=== PATIENT | female | born 1975 | race Caucasian/White ===

== ENCOUNTER 2016-07-11 01:58 | Emergency (ER) | payer SELFPAY ==
[~2016-07-11 01:58] MED LIST: HYDR-2768 PO; LISI-363 PO
[2016-07-11 02:01] VITALS: BP 117/65; PULSE 115; RESP 18; TEMP 97.8; O2SAT 98
[2016-07-11 02:32] VITALS: BP 164/107; PULSE 97; RESP 22; TEMP 98; O2SAT 99
[2016-07-11] MEDS ORDERED: HYDR25TA5 PO (02:33)
[2016-07-11] MEDS ORDERED: CIPR-9 PO (02:33)
[2016-07-11] MEDS ORDERED: LISI-515 PO (02:33)
[2016-07-11] MEDS ORDERED: MORPHINE SULFATE 4 MG/ML INJ IM ONE (02:45)
[2016-07-11] MEDS ORDERED: ONDANSETRON HCL 4 MG/2 ML VIAL IM ONE (02:45)
--- NOTE | 2016-07-11 03:19 | RADRPT ---
EXAM DATE/TIME: 07/11/2016 02:42 [facility] COMPARISON: CT ABDOMEN & PELVIS W CONTRAST, December 10, 2015, 22:50. INDICATIONS : Left flank pain. ORAL CONTRAST: No oral contrast ingested. RADIATION DOSE: 12.82 CTDIvol (mGy) MEDICAL HISTORY : Seizures. Hypertension. SURGICAL HISTORY : Hysterectomy. Cholecystectomy.Stimulator for seizures ENCOUNTER: Initial ACUITY: 2 days PAIN SCALE: 8/10 LOCATION: Left flank TECHNIQUE: Volumetric scanning of the abdomen and pelvis was performed. Using automated exposure control and ad justment of the mA and/or kV according to patient size, radiation dose was kept as low as reasonably achievable to obtain optimal diagnostic quality images. FINDINGS: There is respiratory motion artifact. LOWER LUNGS: There is a calcified granuloma in the left lower lobe. LIVER: Homogeneous density without lesion. There is no dilation of the biliary tree. Clips are present in the gallbladder fossa related to prior cholecystectomy. SPLEEN: Normal size without lesion. PANCREAS: Within normal limits. KIDNEYS: Normal in size and shape. There is no mass, stone, or hydronephrosis. ADRENAL GLANDS: Within normal limits. VASCULAR: There is no aortic aneurysm. There is mild atherosclerotic disease. BOWEL/MESENTERY: The stomach, small bowel, and colon demonstrate no acute abnormality. There is no free intraperitone al air or fluid. ABDOMINAL WALL: Within normal limits. RETROPERITONEUM: There is no lymphadenopathy. BLADDER: No wall thickening or mass. REPRODUCTIVE: Within normal limits. INGUINAL: There is no lymphadenopathy or hernia. MUSCULOSKELETAL: No acute osseous abnormality is identified. There is a stable area of sclerosis in the left iliac bon e, likely representing a bone island. CONCLUSION: 1. No acute finding is identified within the abdomen or pelvis to explain left flank pain. There are no renal stones or signs of urinary obstruction. 2. Mild atherosclerotic disease. Rayshawn Rothman MD on July 11, 2016 at 3:15 Board Certified Radiologist. This report was verified electronically.
[2016-07-11 03:51] LABS: BACTERIA, URINE RARE /hpf; BLOOD, URINE SMALL (NEG); COMMENT (UR) CULTURE INDICATED; CULTURE IF INDICATED CULTURE INDICATED; GLUCOSE,URINE NEG (NEG); KETONE, URINE NEG (NEG); MUCUS URINE FEW /lpf (OCC); NITRITE,URINE NEG (NEG); PH, URINE 5.5 (5.0-8.5); SQUAMOUS EPITHELIAL CELL URINE 18 /hpf (0-5); URINE COLOR YELLOW (YELLW/STRAW)
--- NOTE | 2016-07-11 03:51 | PD ---
HPI Chief Complaint: Flank/Kidney Pain Time Seen by Provider: 02:28 Travel History International Travel<30 days: No Contact w/Intl Traveler<30days: No Traveled to known affect area: No History of Present Illness HPI 40-year-old female here with complaint of left-sided flank pain. For the last 2 days patient has had pain in the left flank. This is made worse with movement. She does not have any urinary symptoms and denies any radiation of the pain into the abdomen. No history of ureterolithiasis. No nausea vomiting , fevers or chills. Does not recall any heavy lifting, straining. PFSH Past Medical History Blood Disorders: No Depression: Yes Cancer: No Cardiovascular Problems: Yes (htn) Diminished Hearing: No Endocrine: Yes Gastrointestinal Disorders: Yes Genitourinary: No Headaches: Yes Hypertension: Yes Musculoskeletal: No Neurologic: Yes Psychiatric: Yes Reproductive: No Respiratory: Yes Seizures: Yes Sickle Cell Disease: No Thyroid Disease: Yes (HYPOTHYROIDISM) Influenza Vaccination: Yes ?: Not LMP: 06/07/2016 : 2 Para: 1 Miscarriage: 1 Past Surgical History Body Medical Devices: STIMULATOR YULY NERVE Cholecystectomy: Yes Gynecologic Surgery: Yes (LASER ON CERVIX) Hysterectomy: Yes Neurologic Surgery: Yes (VAGUS NERVE STIMULATOR L SIDE CHEST) Thoracic Surgery: Yes (VAGAL STIMULATER IN CHEST FOR SEIZURES) Other Surgery: Yes (VAGUS STIMULATOR INSTERTED >5YRS) Social History Alcohol Use: Yes (OCCASIONALLY) Tobacco Use: Yes (1 PPD) Substance Use: No Allergies-Medications (Allergen,Severity, Reaction): Coded Allergies: Phenobarbital (Verified Allergy, Severe, "HIVES", 07/11/16) Reported Meds & Prescriptions Reported Meds & Active Scripts Active Reported Lisinopril 20 Mg Tab 20 Mg PO BID Hydrochlorothiazide 25 Mg Tab 25 Mg PO DAILY Cipro (Ciprofloxacin HCl) 500 Mg Tab 500 Mg PO BID Review of Systems Except as stated in HPI: all other systems reviewed are Neg Physical Exam Narrative GENERAL: Obese female in mild distress SKIN: Warm and dry. HEAD: Normocephalic. EYES: No scleral icterus. No injection or drainage. ENT: Mucous membranes pink and moist. NECK: Supple CARDIOVASCULAR: Initially tachycardic with heart rate in the 110s, normalized upon recheck, regular rhythm. No murmur appreciated. RESPIRATORY: No accessory muscle use. Clear to auscultation. Breath sounds equal bilaterally. GASTROINTESTINAL: Abdomen soft, non-tender, nondistended. MUSCULOSKELETAL: Left-sided CVA tenderness reproducible. Reproducible paraspinous muscle tenderness without palpable spasm NEUROLOGICAL: Awake and alert. Normal speech. PSYCHIATRIC: Appropriate mood and affect; insight and judgment normal. Data Data Last Documented VS Vital Signs Date Time Temp Pulse Resp B/P Pulse Ox O2 Delivery O2 Flow Rate FiO2 07/11/16 02:32 98.0 97 22 164/107 99 Room Air Orders Urinalysis - C+S If Indicated (07/11/16 02:28) Ct Abd/Pel W/O Iv Contrast (07/11/16 02:33) Morphine Inj (Morphine Inj) (07/11/16 02:45) Ondansetron Inj (Zofran Inj) (07/11/16 02:45) Urine Culture (07/11/16 02:50) Labs Laboratory Tests Test 07/11/16 02:50 Urine Color YELLOW Urine Turbidity HAZY Urine pH 5.5 Urine Specific [place] 1.026 Urine Protein TRACE mg/dL Urine Glucose (UA) NEG mg/dL Urine Ketones NEG mg/dL Urine Occult Blood SMALL Urine Nitrite NEG Urine Bilirubin NEG Urine Urobilinogen 2.0 MG/DL Urine Leukocyte Esterase LARGE Urine RBC 14 /hpf Urine WBC 84 /hpf Urine Squamous Epithelial 18 /hpf Cells Urine Bacteria RARE /hpf Urine Mucus FEW /lpf Microscopic Urinalysis Comment CULTURE INDICATED MDM Medical Decision Making Medical Screen Exam Complete: Yes Emergency Medical Condition: Yes Medical Record Reviewed: Yes Differential Diagnosis 40-year-old female with 2 days of left-sided flank pain. Differential includes musculoskeletal, UTI/pyelonephritis, ureterolithiasis and less likely basilar pneumonia given lack of respiratory symptoms. Narrative Course Patient placed on monitor. Given 4 mg morphine, [address] of the abdomen and pelvis was unremarkable. Urinalysis showed large leukocyte esterase with white cells, red cells and bacteria. Based on her symptomatology she was given IM Rocephin for pyelonephritis and will be discharged home with Keflex. Diagnosis Primary Impression: Pyelonephritis Referrals: Primary Care Physician as needed Additional Instructions: Finish the antibiotics as prescribed. Tylenol, ibuprofen as needed for pain. Med/Other Pt SpecificInfo: Prescription(s) given Scripts Cephalexin (Keflex)500 Mg [id number] Mg PO Q6H 7 Days Ref 0 Prov:Germaine Read MD 07/11/16 Disposition: 01 DISCHARGE HOME Condition: Stable Germaine Read MD Jul 11, 2016 03:51
[2016-07-11] MEDS ORDERED: CEPH-460 PO (04:05)
[2016-07-11] MEDS ORDERED: LIDOCAINE HCL 1% 50 ML VIAL IM ONE (04:15)
== END 2016-07-11 04:24 | disposition home or self-care (01) ==
LOC: NEPE 01:58
DX: N12 Tubulo-interstitial nephritis, not specified as acute or chronic (principal); B96.89 Other specified bacterial agents as the cause of diseases classified elsewhere
CPT/HCPCS: 74176; 81001; 87086; 96372; 99284; J0696; J2270; J2405

== ENCOUNTER 2016-10-23 23:16 | Emergency (ER) | payer SELFPAY ==
[~2016-10-23] VITALS: Ht 167.6 cm; Wt 100.0 kg
[~2016-10-23 23:16] MED LIST changes: +CEPH-460 PO; +CIPR-9 PO; -HYDR-2768 PO; +HYDR25TA5 PO; -LISI-363 PO; +LISI-515 PO
[2016-10-23 23:27] VITALS: BP 205/126; PULSE 91; RESP 18; TEMP 98.2; O2SAT 98
--- NOTE | 2016-10-24 00:14 | PD ---
HPI Chief Complaint: Skin Problem Time Seen by Provider: 00:13 Travel History International Travel<30 days: No Contact w/Intl Traveler<30days: No Traveled to known affect area: No History of Present Illness HPI 41-year-old female presents to emergency department for evaluation. Patient states 4 days ago she had a tattoo on the distal right lateral lower extremity. Patient states that it burned immediately and the artist changed ankle which helped. She states this was done in a professional place. She states shortly after the tattoo she developed some redness surrounding it. She states this has worsened and now she has swelling extending to her right ankle. She denies fever or chills. States that it is painful and burning, rates it an 8 out of 10. Patient has no other symptoms to report this time. PFSH Past Medical History Blood Disorders: No Depression: Yes Cancer: No Cardiovascular Problems: Yes (htn) Diminished Hearing: No Endocrine: Yes Gastrointestinal Disorders: Yes Genitourinary: No Headaches: Yes Hypertension: Yes Musculoskeletal: No Neurologic: Yes Psychiatric: Yes Reproductive: No Respiratory: Yes Seizures: Yes Sickle Cell Disease: No Thyroid Disease: Yes (HYPOTHYROIDISM) ?: Unknown : 2 Para: 1 Miscarriage: 1 Past Surgical History Body Medical Devices: STIMULATOR YULY NERVE Cholecystectomy: Yes Gynecologic Surgery: Yes (LASER ON CERVIX) Hysterectomy: Yes Neurologic Surgery: Yes (VAGUS NERVE STIMULATOR L SIDE CHEST) Thoracic Surgery: Yes (VAGAL STIMULATER IN CHEST FOR SEIZURES) Other Surgery: Yes (VAGUS STIMULATOR INSTERTED >5YRS) Social History Alcohol Use: Yes (OCCASIONALLY) Tobacco Use: Yes (1 PPD) Substance Use: No Allergies-Medications (Allergen,Severity, Reaction): Coded Allergies: Phenobarbital (Verified Allergy, Severe, "HIVES", 07/11/16) Reported Meds & Prescriptions Reported Meds & Active Scripts Active Mupirocin Topical (Mupirocin) 2 % Oint 1 Applic TOPICAL BID Keflex (Cephalexin) 500 Mg Cap 500 Mg PO Q6H 5 Days Bactrim DS (Sulfamethoxazole-Trimethoprim) 800-160 Mg Tab 1 Tab PO BID Keflex (Cephalexin) 500 Mg Cap 500 Mg PO Q6H 7 Days Reported Lisinopril 20 Mg Tab 20 Mg PO BID Hydrochlorothiazide 25 Mg Tab 25 Mg PO DAILY Cipro (Ciprofloxacin HCl) 500 Mg Tab 500 Mg PO BID Review of Systems Except as stated in HPI: all other systems reviewed are Neg Physical Exam Narrative GENERAL: Well-nourished, well-developed female patient no acute distress SKIN: Focused skin assessment warm/dry. There is a tattoo "sisters" on the lateral aspect of the right distal lower extremity. This has an area of erythema surrounding it extending about 3 cm. There is mild edema that is nonpitting extending to the right ankle. The area is warm to touch and tender. There is no fluctuation. HEAD: Normocephalic. EYES: No scleral icterus. No injection or drainage. NECK: Supple, trachea midline. No JVD or lymphadenopathy. CARDIOVASCULAR: Regular rate and rhythm without murmurs, gallops, or rubs. RESPIRATORY: Breath sounds equal bilaterally. No accessory muscle use. MUSCULOSKELETAL: No cyanosis. BACK: Nontender without obvious deformity. No CVA tenderness. Data Data Last Documented VS Vital Signs Date Time Temp Pulse Resp B/P Pulse Ox O2 Delivery O2 Flow Rate FiO2 10/24/16 01:13 89 12 188/81 98 Room Air 10/23/16 23:27 98.2 Orders Sulfamet-Trimeth Ds 800-160 Mg (Bactrim (10/24/16 00:15) Cephalexin (Keflex) (10/24/16 00:15) Clonidine (Catapres) (10/24/16 00:30) MDM Medical Decision Making Medical Screen Exam Complete: Yes Emergency Medical Condition: Yes Medical Record Reviewed: Yes Differential Diagnosis Cellulitis versus abscess versus contact dermatitis versus ink reaction Narrative Course 41-year-old female presents to the emergency department for evaluation of erythema and edema surrounding a tattoo she received 4 days ago. Patient appears without distress. Her vital signs are stable except she is quite hypertensive. Patient does have a history of this. She has no symptoms associated with this. She is given clonidine and monitored. Patient be treated for cellulitis of the right distal lower extremity. Following reassessment, patient's blood pressure has decreased. She'll be discharged home. I encouraged follow-up with a primary care provider. She agrees to return immediately with any acute worsening symptoms. Diagnosis Primary Impression: Cellulitis of right lower extremity without foot Additional Impressions: Hypertension Qualified Code: I10 - Essential hypertension Tattoo reaction Referrals: Primary Care Physician Patient Instructions: Cellulitis (DC), General Instructions Additional Instructions: Keep the area clean and dry You may shower Elevate the lower extremity to reduce swelling Follow-up with your primary care provider Return immediately with any acute worsening of symptoms Med/Other Pt SpecificInfo: Prescription(s) given Scripts Mupirocin Topical 2 % Oint1 Applic TOPICAL BID #1 TUBE Ref 0 Prov:Yolanda Braun 10/24/16 Cephalexin (Keflex)500 Mg [id number] Mg PO Q6H 5 Days Ref 0 Prov:Yolanda Braun 10/24/16 Sulfamethoxazole-Trimethoprim (Bactrim DS)800-160 Mg Tab1 Tab PO BID #20 TAB Ref 0 Prov:Yolanda Braun 10/24/16 Disposition: 01 DISCHARGE HOME Condition: Stable Yolanda Braun October 24, 2016 00:13
[2016-10-24] MEDS ORDERED: CEPHALEXIN MONOHYDRATE 500 MG CAP PO ONE (00:15)
[2016-10-24] MEDS ORDERED: SULFAMETHOXAZOLE-TRIMETHOPRIM DS 800-160 MG TAB PO ONE (00:15)
[2016-10-24 00:17] VITALS: BP 213/110; PULSE 88; RESP 14; O2SAT 99
[2016-10-24] MEDS ORDERED: cloNIDine HCL 0.2 MG TAB PO ONE (00:30)
[2016-10-24] MEDS ORDERED: CEPH-460 PO (00:37)
[2016-10-24] MEDS ORDERED: BACT800T5 PO (00:37)
[2016-10-24] MEDS ORDERED: MUPI2OIN TOPICAL (00:37)
[2016-10-24 01:04] VITALS: BP 197/75; PULSE 84; RESP 12; O2SAT 97
[2016-10-24 01:13] VITALS: BP 188/81; PULSE 89; RESP 12; O2SAT 98
== END 2016-10-24 01:18 | disposition home or self-care (01) ==
LOC: NEPD 23:16
DX: L03.115 Cellulitis of right lower limb (principal); I10 Essential (primary) hypertension; E03.9 Hypothyroidism, unspecified; F17.200 Nicotine dependence, unspecified, uncomplicated
CPT/HCPCS: 99282

== ENCOUNTER 2016-12-14 15:30 | Emergency (ER) | payer SELFPAY ==
[~2016-12-14] VITALS: Ht 167.6 cm; Wt 90.5 kg
[~2016-12-14 15:30] MED LIST changes: +BACT800T5 PO; +MUPI2OIN TOPICAL
[2016-12-14 15:32] VITALS: BP 209/140; PULSE 102; RESP 24; TEMP 97.9; O2SAT 94
--- NOTE | 2016-12-14 15:36 | PD ---
Physical Exam Time Seen by Provider: 15:34 Narrative 41 y/o female here for evaluation of cough, congestion, pain with cough. Cough is nonproductive. Vital signs reviewed. Seen at triage desk. Awaiting bed placement. Data Data Last Documented VS Vital Signs Date Time Temp Pulse Resp B/P Pulse Ox O2 Delivery O2 Flow Rate FiO2 12/14/16 15:32 97.9 102 24 209/140 94 Room Air [facility] Medical Record Reviewed: Yes Supervised Visit with SHYLA: Jose Martin Quiñones Dec 14, 2016 15:35
[2016-12-14] MEDS ORDERED: hydrALAZINE HCL 20 MG/ML VIAL IV PUSH ONE ×2 (19:00→22:00)
--- NOTE | 2016-12-14 19:25 | RADRPT ---
EXAM DATE/TIME: 12/14/2016 19:15 [facility] COMPARISON: CHEST SINGLE AP, March 10, 2016, 13:13. INDICATIONS : Cough. MEDICAL HISTORY : Hypertension. Seizures. SURGICAL HISTORY : Hysterectomy. Cholecystectomy.Stimulator for seizures ENCOUNTER: Initial ACUITY: 1 day PAIN SCORE: 6/10 LOCATION: Bilateral chest FINDINGS: A single view of the chest demonstrates the lungs to be symmetrically aerated without evidence of mas s, infiltrate or effusion. Stimulator for seizure is noted without leads. The cardiomediastinal con tours are unremarkable. Osseous structures are intact. CONCLUSION: No acute disease. [place] MD FACR on December 14, 2016 at 19:23 Board Certified Radiologist. This report was verified electronically.
[2016-12-14 19:26] VITALS: BP 206/116; PULSE 78; RESP 18; O2SAT 96
--- NOTE | 2016-12-14 19:28 | PD ---
HPI Chief Complaint: GI Complaint Time Seen by Provider: 18:34 Travel History International Travel<30 days: No Contact w/Intl Traveler<30days: No Traveled to known affect area: No History of Present Illness HPI 41yo F with PMH of HTN presents to the ED with c/o dry cough, throat pain since yesterday. Pt states she also had an episode of NBNB vomiting yesterday. Pt denies any fever, headache, visual changes, chest pain, sob, nausea, abdominal pain, focal weakness or numbness. States she is compliant with her blood pressure medications. PFSH Past Medical History Blood Disorders: No Depression: Yes Cancer: No Cardiovascular Problems: Yes (htn) Diminished Hearing: No Endocrine: Yes Gastrointestinal Disorders: Yes Genitourinary: No Headaches: Yes Hypertension: Yes Musculoskeletal: No Neurologic: Yes Psychiatric: Yes Reproductive: No Respiratory: Yes Seizures: Yes Sickle Cell Disease: No Thyroid Disease: Yes (HYPOTHYROIDISM) ?: Unknown LMP: 10/10/16 : 2 Para: 1 Miscarriage: 1 Past Surgical History Body Medical Devices: STIMULATOR YULY NERVE Cholecystectomy: Yes Gynecologic Surgery: Yes (LASER ON CERVIX) Hysterectomy: Yes Neurologic Surgery: Yes (VAGUS NERVE STIMULATOR L SIDE CHEST) Thoracic Surgery: Yes (VAGAL STIMULATER IN CHEST FOR SEIZURES) Other Surgery: Yes (VAGUS STIMULATOR INSTERTED >5YRS) Social History Alcohol Use: Yes (OCCASIONALLY) Tobacco Use: Yes (1/2 ppd) Substance Use: No Allergies-Medications (Allergen,Severity, Reaction): Coded Allergies: Phenobarbital (Verified Allergy, Severe, "HIVES", 12/14/16) Reported Meds & Prescriptions Reported Meds & Active Scripts Active Reported Lisinopril 20 Mg Tab 20 Mg PO BID Hydrochlorothiazide 25 Mg Tab 25 Mg PO DAILY Review of Systems Except as stated in HPI: all other systems reviewed are Neg Physical Exam Narrative GENERAL: 41yo F not in distress. SKIN: Focused skin assessment warm/dry. HEAD: Atraumatic. Normocephalic. EYES: Pupils equal and round. No scleral icterus. No injection or drainage. ENT: No nasal bleeding or discharge. Mucous membranes pink and moist. Throat: Mildly erythematous throat. Uvula midline. No exudate. NECK: Trachea midline. No JVD. CARDIOVASCULAR: Regular rate and rhythm. No murmur appreciated. RESPIRATORY: No accessory muscle use. Clear to auscultation. Breath sounds equal bilaterally. GASTROINTESTINAL: Abdomen soft, non-tender, nondistended. No rebound tenderness or guarding. MUSCULOSKELETAL: No obvious deformities. No clubbing. No cyanosis. No edema. NEUROLOGICAL: Awake and alert. No obvious cranial nerve deficits. Motor grossly within normal limits. Normal speech. PSYCHIATRIC: Appropriate mood and affect; insight and judgment normal. Data Data Last Documented VS Vital Signs Date Time Temp Pulse Resp B/P Pulse Ox O2 Delivery O2 Flow Rate FiO2 12/14/16 22:25 176/91 12/14/16 21:55 80 99 Room Air 12/14/16 21:44 18 12/14/16 15:32 97.9 Orders Chest, Single Ap (12/14/16 ) Complete Blood Count With Diff (12/14/16 18:47) Basic Metabolic Panel (Bmp) (12/14/16 18:47) Magnesium (Mg) (12/14/16 18:47) Urinalysis - C+S If Indicated (12/14/16 18:47) Ed Urine Pregnancytest Poc (12/14/16 18:47) Hydralazine Inj (Apresoline Inj) (12/14/16 19:00) Group A Rapid Strep Screen (12/14/16 18:57) Strep Culture (Group A) (12/14/16 19:30) Clonidine (Catapres) (12/14/16 21:15) Clonidine (Catapres) (12/14/16 22:00) Hydralazine Inj (Apresoline Inj) (12/14/16 22:00) Labs Laboratory Tests Test 12/14/16 12/14/16 19:20 19:35 Urine Color YELLOW Urine Turbidity CLEAR Urine pH 5.5 Urine Specific [place] 1.028 Urine Protein TRACE mg/dL Urine Glucose (UA) NEG mg/dL Urine Ketones NEG mg/dL Urine Occult Blood TRACE Urine Nitrite NEG Urine Bilirubin NEG Urine Urobilinogen LESS THAN 2.0 MG/DL Urine Leukocyte Esterase TRACE Urine RBC 2 /hpf Urine WBC 1 /hpf Urine Squamous Epithelial 3 /hpf Cells Urine Bacteria RARE /hpf Urine Mucus FEW /lpf Microscopic Urinalysis Comment CULT NOT INDICATED White Blood Count 7.9 TH/MM3 Red Blood Count 4.41 MIL/MM3 Hemoglobin 13.0 GM/DL Hematocrit 39.5 % Mean Corpuscular Volume 89.6 FL Mean Corpuscular Hemoglobin 29.5 PG Mean Corpuscular Hemoglobin 33.0 % Concent Red Cell Distribution Width 15.1 % Platelet Count 187 TH/MM3 Mean Platelet Volume 10.3 FL Neutrophils (%) (Auto) 66.9 % Lymphocytes (%) (Auto) 20.3 % Monocytes (%) (Auto) 10.7 % Eosinophils (%) (Auto) 1.5 % Basophils (%) (Auto) 0.6 % Neutrophils # (Auto) 5.3 TH/MM3 Lymphocytes # (Auto) 1.6 TH/MM3 Monocytes # (Auto) 0.8 TH/MM3 Eosinophils # (Auto) 0.1 TH/MM3 Basophils # (Auto) 0.0 TH/MM3 CBC Comment DIFF FINAL Differential Comment Sodium Level 140 MEQ/L Potassium Level 4.0 MEQ/L Chloride Level 107 MEQ/L Carbon Dioxide Level 26.4 MEQ/L Anion Gap 7 MEQ/L Blood Urea Nitrogen 17 MG/DL Creatinine 0.95 MG/DL Estimat Glomerular Filtration 65 ML/MIN Rate Random Glucose 86 MG/DL Calcium Level 8.5 MG/DL Magnesium Level 2.1 MG/DL [facility] Medical Decision Making Medical Screen Exam Complete: Yes Emergency Medical Condition: Yes Differential Diagnosis URI vs. pneumonia vs. pharyngitis Narrative Course 41yo F with c/o dry cough, throat pain, and generalized weakness. Labs reviewed , no leukocytosis. BMP unremarkable. Magnesium normal. UA showed trace leukocyte. WBC 1. Culture not indicated. CXR negative. Group A strep negative. Pt's blood pressure was elevated at 206/116. Pt was given a total of hydralazine 20mg IV and clonidine 0.2mg PO. BP improved to 176/91. Pt reevaluated at bedside and she states she feels better and wants to go home. Return precautions given. Diagnosis Primary Impression: URI (upper respiratory infection) Qualified Code: J06.9 - Upper respiratory tract infection, unspecified type Additional Impression: Uncontrolled hypertension Patient Instructions: General Instructions Departure Forms: Tests/Procedures Additional Instructions: Please follow up with your PMD in 3-7 days. Return to the ED if symptoms worsen. Med/Other Pt SpecificInfo: Prescription(s) given Scripts Acetaminophen (Tylenol)325 Mg [id number] Mg PO Q6H PRN (PAIN SCALE 1 TO 4) #20 TAB Ref 0 Prov:Dolores Alvarez DO 12/14/16 Dextromethorphan (Robitussin Lingering Cold)15 Mg Cap30 Mg PO Q8H PRN (COUGH) 5 Days Ref 0 Prov:Dolores Alvarez DO 12/14/16 Disposition: 01 DISCHARGE HOME Condition: Stable Dolores Alvarez DO Dec 14, 2016 19:28
[2016-12-14 20:13] LABS: BACTERIA, URINE RARE /hpf; BLOOD, URINE TRACE (NEG); COMMENT (UR) CULT NOT INDICATED; CULTURE IF INDICATED CULT NOT INDICATED; GLUCOSE,URINE NEG (NEG); KETONE, URINE NEG (NEG); MUCUS URINE FEW /lpf (OCC); NITRITE,URINE NEG (NEG); PH, URINE 5.5 (5.0-8.5); SQUAMOUS EPITHELIAL CELL URINE 3 /hpf (0-5); URINE COLOR YELLOW (YELLW/STRAW)
[2016-12-14 20:16] LABS: AUTOMATED NEUTROPHIL # 5.3 TH/MM3 (1.8-7.7); BASOPHIL % 0.6 % (0.0-2.0); EOSINOPHIL # 0.1 TH/MM3 (0-0.4); EOSINOPHIL % 1.5 % (0.0-4.0); HEMATOCRIT 39.5 % (35.0-46.0); HEMO FLAGS DIFF FINAL; LYMPH % 20.3 % (9.0-44.0); LYMPHOCYTE # 1.6 TH/MM3 (1.0-4.8); MEAN CELL VOLUME 89.6 FL (80.0-100.0); MEAN CORPUSCULAR HEMOGLOBIN 29.5 PG (27.0-34.0); MONO % 10.7 % (0.0-8.0); NEUT % 66.9 % (16.0-70.0); PLATELET COUNT 187 TH/MM3 (150-450); RED BLOOD COUNT 4.41 MIL/MM3 (4.00-5.30); RED CELL DISTRIBUTION WIDTH 15.1 % (11.6-17.2); WHITE BLOOD COUNT 7.9 TH/MM3 (4.0-11.0)
[2016-12-14 20:33] LABS: BICARBONATE 26.4 MEQ/L (21.0-32.0); MAGNESIUM 2.1 MG/DL (1.5-2.5)
[2016-12-14 21:02] VITALS: BP 213/115; PULSE 78; RESP 18; O2SAT 98
[2016-12-14] MEDS ORDERED: cloNIDine HCL 0.1 MG TAB PO ONE ×2 (21:15→22:00)
[2016-12-14 21:44] VITALS: BP 194/138; PULSE 82; RESP 18; O2SAT 98
[2016-12-14 21:55] VITALS: BP 190/112; PULSE 80; O2SAT 99
[2016-12-14 22:25] VITALS: BP 176/91
[2016-12-14] MEDS ORDERED: TYLE325T PO (23:05)
[2016-12-14] MEDS ORDERED: ROBICAP2 PO (23:05)
== END 2016-12-14 23:13 | disposition home or self-care (01) ==
LOC: NEPD 15:30
DX: J06.9 Acute upper respiratory infection, unspecified (principal); I10 Essential (primary) hypertension; R53.1 Weakness; F32.9 Major depressive disorder, single episode, unspecified; R56.9 Unspecified convulsions; E03.9 Hypothyroidism, unspecified; F17.200 Nicotine dependence, unspecified, uncomplicated; Z79.899 Other long term (current) drug therapy
CPT/HCPCS: 71010; 80048; 81001; 83735; 84703; 85025; 87081; 87880; 96374; 96376; 99284; J0360

== ENCOUNTER 2017-01-11 17:47 | Emergency (ER) | payer SELFPAY ==
[~2017-01-11] VITALS: Ht 167.6 cm; Wt 100.0 kg
[~2017-01-11 17:47] MED LIST changes: -BACT800T5 PO; -CEPH-460 PO; -CIPR-9 PO; -MUPI2OIN TOPICAL; +ROBICAP2 PO; +TYLE325T PO
[2017-01-11 17:50] VITALS: BP 209/129; PULSE 98; RESP 22; TEMP 97.8; O2SAT 95
--- NOTE | 2017-01-11 18:02 | PD ---
Physical Exam Date Seen by Provider: Jan 11, 2017 Time Seen by Provider: 17:56 Narrative 41 y/o female with RLQ pain for the past several days. No Nausea or vomiting or Diarrhea. Patient denies Urinary symptoms. Denies . Pain is worsening and worse with Movement. Patient had 2 BM's today which made pain worse. Protocols ordered. Vital signs reviewed. Patient stable. Awaiting Bed placement. Data Data Last Documented VS Vital Signs Date Time Temp Pulse Resp B/P Pulse Ox O2 Delivery O2 Flow Rate FiO2 01/11/17 17:50 97.8 98 22 209/129 95 MDM Medical Record Reviewed: Yes Supervised Visit with SHYLA: Yes Condition: Stable Kevin Ramírez Jan 11, 2017 18:02
[2017-01-11 18:25] LABS: BACTERIA, URINE RARE /hpf; BLOOD, URINE SMALL (NEG); COMMENT (UR) CULT NOT INDICATED; CULTURE IF INDICATED CULT NOT INDICATED; GLUCOSE,URINE NEG (NEG); KETONE, URINE NEG (NEG); MUCUS URINE FEW /lpf (OCC); NITRITE,URINE NEG (NEG); SQUAMOUS EPITHELIAL CELL URINE 2 /hpf (0-5); URINE COLOR YELLOW (YELLW/STRAW)
[2017-01-11 21:02] VITALS: BP 194/123; PULSE 81; RESP 16; TEMP 97.7; O2SAT 100
[2017-01-11] MEDS ORDERED: SODIUM CHLOR 0.9% 1000 ML INJ 1,000 ML IV ONE (22:00)
[2017-01-11] MEDS ORDERED: ONDANSETRON HCL 4 MG/2 ML VIAL IV PUSH ONE (22:00)
[2017-01-11] MEDS ORDERED: MORPHINE SULFATE 4 MG/ML INJ IV PUSH ONE (22:00)
[2017-01-11 22:03] LABS: AUTOMATED NEUTROPHIL # 6.8 TH/MM3 (1.8-7.7); BASOPHIL % 0.4 % (0.0-2.0); EOSINOPHIL # 0.1 TH/MM3 (0-0.4); EOSINOPHIL % 1.1 % (0.0-4.0); HEMATOCRIT 43.5 % (35.0-46.0); HEMO FLAGS DIFF FINAL; LYMPH % 18.6 % (9.0-44.0); LYMPHOCYTE # 1.8 TH/MM3 (1.0-4.8); MEAN CELL VOLUME 90.9 FL (80.0-100.0); MEAN CORPUSCULAR HEMOGLOBIN 29.9 PG (27.0-34.0); MEAN CORPUSCULAR HGB CONC 32.9 % (32.0-36.0); MONO % 8.2 % (0.0-8.0); NEUT % 71.7 % (16.0-70.0); PLATELET COUNT 220 TH/MM3 (150-450); RED BLOOD COUNT 4.79 MIL/MM3 (4.00-5.30); RED CELL DISTRIBUTION WIDTH 16.1 % (11.6-17.2); WHITE BLOOD COUNT 9.4 TH/MM3 (4.0-11.0)
[2017-01-11 22:23] LABS: ANION GAP 7 MEQ/L (5-15); AST (GOT) 15 U/L (15-37); BICARBONATE 26.1 MEQ/L (21.0-32.0); BLOOD UREA NITROGEN 18 MG/DL (7-18); CHLORIDE 103 MEQ/L (98-107); GLOMERULAR FILTRATION RATE 54 ML/MIN (>89); POTASSIUM 3.8 MEQ/L (3.5-5.1); SODIUM (NA) 136 MEQ/L (136-145)
[2017-01-11 22:24] LABS: ALT (GPT) 21 U/L (10-53)
[2017-01-11 22:27] LABS: ALKALINE PHOSPHATASE 105 U/L (45-117); TOTAL BILIRUBIN ADULT 0.8 MG/DL (0.2-1.0)
[2017-01-11] MEDS ORDERED: IOHEXOL 350 MG/ML 10 ML VIAL (for RAD DIAG) IV ONE (23:16)
--- NOTE | 2017-01-11 23:24 | RADRPT ---
EXAM DATE/TIME: 01/11/2017 23:09 [facility] COMPARISON: CT ABDOMEN & PELVIS W/O CONTRAST, July 11, 2016, 2:42. CT ABDOMEN & PELVIS W CONTRAST, December 10, 2015, 22:50. INDICATIONS : Lower right quadrant pain. IV CONTRAST: 97 cc Omnipaque 350 (iohexol) IV ORAL CONTRAST: No oral contrast ingested. RADIATION DOSE: 23.23 CTDIvol (mGy) MEDICAL HISTORY : Seizures. Hypertension. SURGICAL HISTORY : Cholecystectomy. Hysterectomy. ENCOUNTER: Initial ACUITY: 2 days PAIN SCALE: 9/10 LOCATION: Right lower quadrant TECHNIQUE: Volumetric scanning of the abdomen and pelvis was performed. Using automated exposure control and ad justment of the mA and/or kV according to patient size, radiation dose was kept as low as reasonably achievable to obtain optimal diagnostic quality images. DICOM format image data is available electro nically for review and comparison. FINDINGS: The patient is status post cholecystectomy and hysterectomy. There is a small pericardial effusion. L iver, spleen, pancreas, adrenal glands, kidneys are unremarkable. Mild atherosclerotic calcifications of the aorta and iliac vessels. Urinary bladder, uterus and ovaries are unremarkable. No evidence of bowel obstruction. Stomach unremarkable. No adenopathy or aneurysm. Calcified granuloma in the left lower lobe, calcified splenic granuloma and calcified left paraesophageal lymph node identified. The osseous structures are intact. There is a bone island of the left iliac bone posteriorly. CONCLUSION: No acute disease. Pawel Contreras MD on January 11, 2017 at 23:21 Board Certified Radiologist. This report was verified electronically.
[2017-01-11] MEDS ORDERED: NAPR500 PO (23:46)
--- NOTE | 2017-01-11 23:46 | PD ---
HPI Chief Complaint: Abdominal Pain Time Seen by Provider: 21:24 Travel History International Travel<30 days: No Contact w/Intl Traveler<30days: No Traveled to known affect area: No History of Present Illness HPI 39s year-old woman presents emergent arm for right lower abdominal pain is been ongoing for the past 2 days or so. Initially was intermittent is been constant and severe since onset. Otherwise has felt well. Normal bowel movements. No urinary symptoms. No vaginal discharge. She's not had her menstrual cycle for the past couple months. She has a history of a cholecystectomy but no other abdominal surgeries. No other complaints. History Past Medical History Narrative Medical Seizures Tetanus Vaccination: > 5 Years Influenza Vaccination: Yes : 2 Para: 1 Social History Alcohol Use: Yes (OCCASIONALLY) Tobacco Use: Yes (1/2 ppd) Allergies-Medications (Allergen,Severity, Reaction): Coded Allergies: Phenobarbital (Verified Allergy, Severe, "HIVES", 01/11/17) Reported Meds & Prescriptions Reported Meds & Active Scripts Active Tylenol (Acetaminophen) 325 Mg Tab 650 Mg PO Q6H PRN Robitussin Lingering Cold (Dextromethorphan HBr) 15 Mg Cap 30 Mg PO Q8H PRN 5 Days Reported Lisinopril 20 Mg Tab 20 Mg PO BID Hydrochlorothiazide 25 Mg Tab 25 Mg PO DAILY Review of Systems Except as stated in HPI: all other systems reviewed are Neg Physical Exam Narrative GENERAL: Well-appearing 41 year-old woman, no acute distress. SKIN: Focused skin assessment warm/dry. HEAD: Atraumatic. Normocephalic. CARDIOVASCULAR: Regular rate and rhythm. No murmur appreciated. RESPIRATORY: No accessory muscle use. Clear to auscultation. Breath sounds equal bilaterally. GASTROINTESTINAL: Abdomen is obese, soft, with right lower quadrant tenderness to palpation and some mild guarding. MUSCULOSKELETAL: No obvious deformities. No clubbing. No cyanosis. No edema. NEUROLOGICAL: Awake and alert. No obvious cranial nerve deficits. Motor grossly within normal limits. Normal speech. PSYCHIATRIC: Appropriate mood and affect; insight and judgment normal. Data Data Last Documented VS Vital Signs Date Time Temp Pulse Resp B/P Pulse Ox O2 Delivery O2 Flow Rate FiO2 01/11/17 21:02 97.7 81 16 194/123 100 Room Air Orders Complete Blood Count With Diff (01/11/17 18:00) Comprehensive Metabolic Panel (01/11/17 18:00) Urinalysis - C+S If Indicated (01/11/17 18:00) Ed Urine Pregnancytest Poc (01/11/17 18:00) Lipase (01/11/17 18:00) Thyroid Stimulating Hormone (01/11/17 21:59) Ct Abd/Pel W Iv Contrast(Rout) (01/11/17 ) Morphine Inj (Morphine Inj) (01/11/17 22:00) Ondansetron Inj (Zofran Inj) (01/11/17 22:00) Sodium Chlor 0.9% 1000 Ml Inj (Ns 1000 M (01/11/17 22:00) Iohexol 350 Inj (Omnipaque 350 Inj) (01/11/17 23:16) Labs Laboratory Tests Test 01/11/17 01/11/17 18:10 21:40 Urine Color YELLOW Urine Turbidity HAZY Urine pH 5.0 Urine Specific [place] 1.025 Urine Protein TRACE mg/dL Urine Glucose (UA) NEG mg/dL Urine Ketones NEG mg/dL Urine Occult Blood SMALL Urine Nitrite NEG Urine Bilirubin NEG Urine Urobilinogen LESS THAN 2.0 MG/DL Urine Leukocyte Esterase SMALL Urine RBC 1 /hpf Urine WBC 3 /hpf Urine Squamous Epithelial 2 /hpf Cells Urine Bacteria RARE /hpf Urine Mucus FEW /lpf Microscopic Urinalysis Comment CULT NOT INDICATED White Blood Count 9.4 TH/MM3 Red Blood Count 4.79 MIL/MM3 Hemoglobin 14.3 GM/DL Hematocrit 43.5 % Mean Corpuscular Volume 90.9 FL Mean Corpuscular Hemoglobin 29.9 PG Mean Corpuscular Hemoglobin 32.9 % Concent Red Cell Distribution Width 16.1 % Platelet Count 220 TH/MM3 Mean Platelet Volume 9.0 FL Neutrophils (%) (Auto) 71.7 % Lymphocytes (%) (Auto) 18.6 % Monocytes (%) (Auto) 8.2 % Eosinophils (%) (Auto) 1.1 % Basophils (%) (Auto) 0.4 % Neutrophils # (Auto) 6.8 TH/MM3 Lymphocytes # (Auto) 1.8 TH/MM3 Monocytes # (Auto) 0.8 TH/MM3 Eosinophils # (Auto) 0.1 TH/MM3 Basophils # (Auto) 0.0 TH/MM3 CBC Comment DIFF FINAL Differential Comment Sodium Level 136 MEQ/L Potassium Level 3.8 MEQ/L Chloride Level 103 MEQ/L Carbon Dioxide Level 26.1 MEQ/L Anion Gap 7 MEQ/L Blood Urea Nitrogen 18 MG/DL Creatinine 1.10 MG/DL Estimat Glomerular Filtration 54 ML/MIN Rate Random Glucose 74 MG/DL Calcium Level 9.1 MG/DL Total Bilirubin 0.8 MG/DL Aspartate Amino Transf 15 U/L (AST/SGOT) Alanine Aminotransferase 21 U/L (ALT/SGPT) Alkaline Phosphatase 105 U/L Total Protein 8.5 GM/DL Albumin 4.1 GM/DL Lipase 108 U/L [facility] Medical Decision Making Medical Screen Exam Complete: Yes Emergency Medical Condition: Yes Interpretation(s) LABS: CBC is unremarkable. CMP is unremarkable. Lipase is normal. UA is unremarkable. CT abdomen and pelvis negative Differential Diagnosis Appendicitis, ovarian cyst, reflux, infection, other Narrative Course Medical decision-making new para 41-year-old with intermittent right lower quadrant abdominal pain. She appears several months. Suspect endometriosis or ovarian cyst. She has right lower quadrant tenderness and appendicitis difficult to completely exclude. CT was negative. Urine is negative. Recommend supportive treatment and outpatient follow-up. Diagnosis Primary Impression: Right lower quadrant abdominal pain Additional Instructions: Take Naprosyn as prescribed. Follow-up with your locate technician for further evaluation. Return to the emergency department for any worsening abdominal pain, fevers or chills, or any other new or worsening symptoms. Med/Other Pt SpecificInfo: Prescription(s) given Scripts Naproxen (Naprosyn)500 Mg Iet352 Mg PO BID PRN (PAIN SCALE 1 TO 10) #20 TAB Prov:Parjmit Carcamo MD 01/11/17 Disposition: 01 DISCHARGE HOME Condition: Stable Parmjit Carcamo MD Jan 11, 2017 23:46
[2017-01-12 00:32] VITALS: RESP 16
== END 2017-01-12 00:33 | disposition home or self-care (01) ==
LOC: NEPD 17:47
DX: R10.31 Right lower quadrant pain (principal); R56.9 Unspecified convulsions; F17.200 Nicotine dependence, unspecified, uncomplicated
CPT/HCPCS: 74177; 80053; 81001; 83690; 84443; 84703; 85025; 96361; 96374; 96375; 99285; J2270; J2405; J7030; Q9967

== ENCOUNTER 2017-01-25 07:24 | Emergency (ER) | payer SELFPAY ==
[~2017-01-25] VITALS: Ht 167.6 cm; Wt 105.0 kg
[~2017-01-25 07:24] MED LIST changes: +NAPR500 PO
[2017-01-25 07:26] VITALS: BP 213/147; PULSE 98; RESP 20; TEMP 97.6; O2SAT 95
[2017-01-25 07:36] VITALS: BP 201/125; PULSE 84
[2017-01-25 09:20] VITALS: RESP 18; O2SAT 98
[2017-01-25 09:28] LABS: AUTOMATED NEUTROPHIL # 6.9 TH/MM3 (1.8-7.7); BASOPHIL % 0.4 % (0.0-2.0); EOSINOPHIL # 0.2 TH/MM3 (0-0.4); EOSINOPHIL % 1.8 % (0.0-4.0); HEMATOCRIT 39.8 % (35.0-46.0); HEMO FLAGS DIFF FINAL; LYMPH % 14.8 % (9.0-44.0); LYMPHOCYTE # 1.4 TH/MM3 (1.0-4.8); MEAN CELL VOLUME 91.4 FL (80.0-100.0); MEAN CORPUSCULAR HEMOGLOBIN 29.2 PG (27.0-34.0); MONO % 8.6 % (0.0-8.0); NEUT % 74.4 % (16.0-70.0); PLATELET COUNT 215 TH/MM3 (150-450); RED BLOOD COUNT 4.36 MIL/MM3 (4.00-5.30); RED CELL DISTRIBUTION WIDTH 15.7 % (11.6-17.2); WHITE BLOOD COUNT 9.3 TH/MM3 (4.0-11.0)
[2017-01-25 09:37] VITALS: RESP 18; O2SAT 98
--- NOTE | 2017-01-25 09:52 | PD ---
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 Patient states that she has not had a period in several months. She states that she was seen here 2 weeks ago for lower abdominal pain and was told to follow up with a [employer]OR OF [employer]LECTIONS AND [employer]CHIVES physician. She has not yet followed up with a physician at this point. She reports a large amount of bright red blood. She asked she showed me a picture of a clot in the toilet. There are no other complaints time my examination. PFSH Past Medical History Blood Disorders: No Depression: Yes Cancer: No Cardiovascular Problems: Yes (HTN) Diminished Hearing: No Endocrine: Yes Gastrointestinal Disorders: Yes Genitourinary: No Headaches: Yes Hypertension: Yes Musculoskeletal: No Neurologic: Yes Psychiatric: Yes Reproductive: No Respiratory: Yes Seizures: Yes Sickle Cell Disease: No Thyroid Disease: Yes (HYPOTHYROIDISM) ?: Not : 2 Para: 1 Miscarriage: 1 Past Surgical History Body Medical Devices: STIMULATOR YULY NERVE Cholecystectomy: Yes Gynecologic Surgery: Yes (LASER ON CERVIX) Hysterectomy: Yes Neurologic Surgery: Yes (VAGUS NERVE STIMULATOR L SIDE CHEST) Thoracic Surgery: Yes (VAGAL STIMULATER IN CHEST FOR SEIZURES) Other Surgery: Yes (VAGUS STIMULATOR INSTERTED >5YRS) Social History Alcohol Use: Yes (OCCASIONALLY) Tobacco Use: Yes (1/2 ppd) Substance Use: No Allergies-Medications (Allergen,Severity, Reaction): Coded Allergies: phenobarbital (Verified Allergy, Severe, "HIVES", 01/25/17) Reported Meds & Prescriptions Reported Meds & Active Scripts Active Provera (Medroxyprogesterone Acetate) 10 Mg Tab 10 Mg PO DAILY Start day 16 Cipro (Ciprofloxacin HCl) 500 Mg Tab 500 Mg PO BID 14 Days Reported Lisinopril 20 Mg Tab 20 Mg PO BID Hydrochlorothiazide 25 Mg Tab 25 Mg PO DAILY Review of Systems Except as stated in HPI: all other systems reviewed are Neg HENT: No: Headaches, Lightheadedness Cardiovascular: No: Chest Pain or Discomfort, Palpitations Respiratory: No: Cough, Shortness of Breath Gastrointestinal: No: Nausea, Vomiting, Abdominal Pain Genitourinary: Positive: Vaginal Bleeding, No: Dysuria Neurologic: No: Weakness, Dizziness Physical Exam Narrative GENERAL: Well-nourished, well-developed patient. SKIN: Focused skin assessment warm/dry. HEAD: Normocephalic/atraumatic. EYES: No scleral icterus. No injection or drainage. NECK: Supple, trachea midline. CARDIOVASCULAR: Regular rate and rhythm without murmurs, gallops, or rubs. RESPIRATORY: Breath sounds equal bilaterally. No accessory muscle use. GASTROINTESTINAL: Abdomen soft, obese, non-tender, nondistended. GENITOURINARY: Deferred. MUSCULOSKELETAL: No cyanosis, or edema. NEUROLOGICAL: Awake and alert. Cranial nerves II through XII intact. Motor grossly within normal limits. Five out of 5 muscle strength in all muscle groups. Normal speech. Data Data Last Documented VS Vital Signs Date Time Temp Pulse Resp B/P (MAP) Pulse Ox O2 Delivery O2 Flow Rate FiO2 01/25/17 10:30 97.8 86 18 189/96 (127) 98 Room Air Orders Orders Complete Blood Count With Diff (01/25/17 08:06) Iv Access Insert/Monitor (01/25/17 08:06) Oxygen Administration (01/25/17 08:06) Oximetry (01/25/17 08:06) Ed Urine Pregnancytest Poc (01/25/17 08:06) Prothrombin Time / Inr (Pt) (01/25/17 09:31) Act Partial Throm Time (Ptt) (01/25/17 09:31) Urinalysis - C+S If Indicated (01/25/17 09:31) Ecg Monitoring (01/25/17 09:31) Urine Culture (01/25/17 09:30) Mandatory Outpatient Referral (01/25/17 12:24) Labs Laboratory Tests Test 01/25/17 09:15 01/25/17 09:30 White Blood Count 9.3 TH/MM3 Red Blood Count 4.36 MIL/MM3 Hemoglobin 12.7 GM/DL Hematocrit 39.8 % Mean Corpuscular Volume 91.4 FL Mean Corpuscular Hemoglobin 29.2 PG Mean Corpuscular Hemoglobin Concent 32.0 % Red Cell Distribution Width 15.7 % Platelet Count 215 TH/MM3 Mean Platelet Volume 8.8 FL Neutrophils (%) (Auto) 74.4 % Lymphocytes (%) (Auto) 14.8 % Monocytes (%) (Auto) 8.6 % Eosinophils (%) (Auto) 1.8 % Basophils (%) (Auto) 0.4 % Neutrophils # (Auto) 6.9 TH/MM3 Lymphocytes # (Auto) 1.4 TH/MM3 Monocytes # (Auto) 0.8 TH/MM3 Eosinophils # (Auto) 0.2 TH/MM3 Basophils # (Auto) 0.0 TH/MM3 CBC Comment DIFF FINAL Differential Comment Prothrombin Time 10.4 SEC Prothromb Time International Ratio 0.9 RATIO Activated Partial Thromboplast Time 29.3 SEC Urine Color RED Urine Turbidity CLOUDY Urine pH 5.5 Urine Specific [place] 1.025 Urine Protein 30 mg/dL Urine Glucose (UA) NEG mg/dL Urine Ketones NEG mg/dL Urine Occult Blood LARGE Urine Nitrite NEG Urine Bilirubin NEG Urine Urobilinogen LESS THAN 2.0 MG/DL Urine Leukocyte Esterase NEG Urine RBC /hpf Urine WBC 11 /hpf Urine Squamous Epithelial Cells 3 /hpf Urine Bacteria MOD /hpf Urine Mucus FEW /lpf Microscopic Urinalysis Comment CULTURE INDICATED MDM Medical Decision Making Medical Screen Exam Complete: Yes Emergency Medical Condition: Yes Differential Diagnosis Dysfunction uterine bleeding versus endometrial cancer versus fibroid uterus Narrative Course 41-year-old female presents with vaginal bleeding times one day. Patient has a stable hemoglobin. She was seen 2 weeks ago for pelvic pain referred to [employer]OR OF [employer]. She is not yet followed up with DIRECTOR OF [employer]LECTIONS AND ARCHIVES. Patient has a UTI as well. She'll be given Cipro for the UTI. She'll also be given Provera for the dysfunctional uterine bleeding. She is instructed to follow up with the [employer] OF [employer]CH[employer] physician. Mandatory referral placed for her. Diagnosis Primary Impression: Dysfunctional uterine bleeding Additional Impressions: Cystitis History of hypertension Additional Instructions: A mandatory referral for [employer]OR OF [employer]LECTIONS AND ARCH[employer] has been placed. Return if worse, dizziness, shortness breath, or any other reason. Med/Other Pt SpecificInfo: Prescription(s) given Scripts Medroxyprogesterone Acetate (Provera) 10 Mg Tab 10 MG PO DAILY for Uterine bleeding, #10 TAB 0 Refills Start day 16 Prov: Nimesh Grullon MD 01/25/17 Ciprofloxacin (Cipro) 500 Mg Tab 500 MG PO BID for Infection for 14 Days, TAB 0 Refills Prov: Nimesh Grullon MD 01/25/17 Disposition: 01 DISCHARGE HOME Condition: Stable Nimesh Grullon MD Jan 25, 2017 09:52
[2017-01-25 10:01] LABS: APTT (PATIENT) 29.3 SEC (24.3-30.1); INTERNATIONAL NORMALIZED RATIO 0.9 RATIO; PROTHROMBIN TIME - PATIENT 10.4 SEC (9.8-11.6)
[2017-01-25 10:28] LABS: BACTERIA, URINE MOD /hpf; BLOOD, URINE LARGE (NEG); COMMENT (UR) CULTURE INDICATED; CULTURE IF INDICATED CULTURE INDICATED; GLUCOSE,URINE NEG (NEG); KETONE, URINE NEG (NEG); MUCUS URINE FEW /lpf (OCC); NITRITE,URINE NEG (NEG); PH, URINE 5.5 (5.0-8.5); SQUAMOUS EPITHELIAL CELL URINE 3 /hpf (0-5)
[2017-01-25 10:29] LABS: URINE COLOR RED (YELLW/STRAW)
[2017-01-25 10:30] VITALS: BP 189/96; PULSE 86; RESP 18; TEMP 97.8; O2SAT 98
[2017-01-25] MEDS ORDERED: CIPR-9 PO (11:49)
[2017-01-25] MEDS ORDERED: PROV10TA PO (11:49)
[2017-01-25 12:45] VITALS: BP 150/86; TEMP 97.8
== END 2017-01-25 12:45 | disposition home or self-care (01) ==
LOC: NEPE 07:24
DX: N93.8 Other specified abnormal uterine and vaginal bleeding (principal); N30.90 Cystitis, unspecified without hematuria; I10 Essential (primary) hypertension; B96.89 Other specified bacterial agents as the cause of diseases classified elsewhere; R56.9 Unspecified convulsions; F17.210 Nicotine dependence, cigarettes, uncomplicated
CPT/HCPCS: 81001; 84703; 85025; 85610; 85730; 87086; 99284

== ENCOUNTER 2017-03-18 21:42 | Emergency (ER) | payer SELFPAY ==
[~2017-03-18] VITALS: Ht 167.6 cm; Wt 100.0 kg
[~2017-03-18 21:42] MED LIST changes: +CIPR-9 PO; -NAPR500 PO; +PROV10TA PO; -ROBICAP2 PO; -TYLE325T PO
--- NOTE | 2017-03-18 23:35 | PD ---
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 ALL:PHENOBARB PMHX DENIES PSHX DENIES PFSH Past Medical History Blood Disorders: No Depression: Yes Cardiovascular Problems: Yes (HTN) Diminished Hearing: No Endocrine: Yes Gastrointestinal Disorders: Yes Genitourinary: No Headaches: Yes Hypertension: Yes Musculoskeletal: No Neurologic: Yes Psychiatric: Yes Reproductive: No Respiratory: Yes Seizures: Yes Sickle Cell Disease: No Thyroid Disease: Yes (HYPOTHYROIDISM) : 2 Para: 1 Miscarriage: 1 Past Surgical History Body Medical Devices: STIMULATOR YULY NERVE Cholecystectomy: Yes Gynecologic Surgery: Yes (LASER ON CERVIX) Hysterectomy: Yes Neurologic Surgery: Yes (VAGUS NERVE STIMULATOR L SIDE CHEST) Thoracic Surgery: Yes (VAGAL STIMULATER IN CHEST FOR SEIZURES) Other Surgery: Yes (VAGUS STIMULATOR INSTERTED >5YRS) Social History Alcohol Use: Yes (OCCASIONALLY) Tobacco Use: Yes (1/2 ppd) Substance Use: No (PT DENIES) Allergies-Medications (Allergen,Severity, Reaction): Coded Allergies: phenobarbital (Verified Allergy, Severe, "HIVES", 03/18/17) Reported Meds & Prescriptions Reported Meds & Active Scripts Active Provera (Medroxyprogesterone Acetate) 10 Mg Tab 10 Mg PO DAILY Start day 16 Cipro (Ciprofloxacin HCl) 500 Mg Tab 500 Mg PO BID 14 Days Reported Lisinopril 20 Mg Tab 20 Mg PO BID Hydrochlorothiazide 25 Mg Tab 25 Mg PO DAILY Review of Systems Except as stated in HPI: all other systems reviewed are Neg Musculoskeletal: Positive: Limited ROM Physical Exam Narrative GENERAL: SKIN: Warm and dry. HEAD: Atraumatic. Normocephalic. EYES: Pupils equal and round. No scleral icterus. No injection or drainage. ENT: No nasal bleeding or discharge. Mucous membranes pink and moist. NECK: Trachea midline. No JVD. CARDIOVASCULAR: Regular rate and rhythm. RESPIRATORY: No accessory muscle use. Clear to auscultation. Breath sounds equal bilaterally. GASTROINTESTINAL: Abdomen soft, non-tender, nondistended. MUSCULOSKELETAL: Extremities without clubbing, cyanosis, or edema. No obvious deformities. EXCEPT TO 5TH DIGIT WHICH IS HYPERFLEXED AT PIP NEUROLOGICAL: Awake and alert. No obvious cranial nerve deficits. Motor grossly within normal limits. Five out of 5 muscle strength in the arms and legs. Normal speech. PSYCHIATRIC: Appropriate mood and affect; insight and judgment normal. Data Data Orders Orders Hand, Complete ([id number]) (03/18/17 ) [facility] Medical Decision Making Medical Screen Exam Complete: Yes Emergency Medical Condition: Yes Medical Record Reviewed: Yes Differential Diagnosis FX V DISLOCATION V SPRAIN Narrative Course XRAYS DID NOT SHOW ANY FX OR DISLOCATION HOWEVER PATIENT'S PIP 5TH JOINT IS UNNATURALLY HYPERFLEXED IF UNOPPOSED FLEXOR TENDON ACTIVITY EXISTS, WILL REFER TO ORTHOPEDIST Diagnosis Primary Impression: RIGHT 5TH DIGIT SUSPECTED EXTENSOR TENDON INJURY Referrals: Joel Fuentes MD PLEASE MAKE APPOINTMENT TO FOLLOW UP WITH ORTHOPEDIC SURGEON, TO EVALUATE FOR POSSIBLE TENDON INJURY Patient Instructions: General Instructions, Tendon Rupture (ED) Disposition: 01 DISCHARGE HOME Condition: Stable Jimmy Starr MD Mar 18, 2017 23:35
--- NOTE | 2017-03-18 23:56 | RADRPT ---
EXAM DATE/TIME: 03/18/2017 23:23 [facility] COMPARISON: No previous studies available for comparison. INDICATIONS : Patient states they jammed their 5th digit on right hand today. Pain in right 4th and 5th digit. MEDICAL HISTORY : None. SURGICAL HISTORY : None. ENCOUNTER: Initial ACUITY: 1 day PAIN SCORE: 7/10 LOCATION: Right Hand FINDINGS: Three view examination of the right hand demonstrates no soft tissue swelling, dislocation, or fractu re. The carpal bones appear intact. The interphalangeal and metacarpophalangeal joints are intact. Bony mineralization is normal. CONCLUSION: Unremarkable examination of the right hand. Foster Johansen MD on March 18, 2017 at 23:52 Board Certified Radiologist. This report was verified electronically.
== END 2017-03-19 00:42 | disposition home or self-care (01) ==
LOC: NEPD 21:42
DX: S66.306A Unspecified injury of extensor muscle, fascia and tendon of right little finger at wrist and hand level, initial encounter (principal); X58.XXXA Exposure to other specified factors, initial encounter; F32.9 Major depressive disorder, single episode, unspecified; I10 Essential (primary) hypertension; G40.909 Epilepsy, unspecified, not intractable, without status epilepticus; E03.9 Hypothyroidism, unspecified; F17.200 Nicotine dependence, unspecified, uncomplicated
CPT/HCPCS: 73130; 99283

== ENCOUNTER 2017-04-01 11:07 | Emergency (ER) | payer SELFPAY ==
[~2017-04-01] VITALS: Ht 167.6 cm; Wt 100.0 kg
[2017-04-01 11:08] VITALS: BP 236/119; PULSE 113; RESP 26; TEMP 98.1; O2SAT 92
[2017-04-01 11:30] VITALS: BP 187/106; PULSE 103; RESP 18; O2SAT 98
[2017-04-01] MEDS ORDERED: SODIUM CHLOR 0.9% 1000 ML INJ 1,000 ML IV SCH ×2 (11:33)
--- NOTE | 2017-04-01 11:33 | PD ---
HPI Chief Complaint: GI Complaint Time Seen by Provider: 11:23 Travel History International Travel<30 days: No Contact w/Intl Traveler<30days: No Traveled to known affect area: No History of Present Illness HPI 41-year-old female presents to the emergency Department with complaint of nasal congestion, cough, sore throat, body aches, subjective fever 3 days. Reports vomiting secondary to cough exacerbations. Reports diarrhea. Denies abdominal pain. Denies hemoptysis or hematochezia. Reports feeling weak. Denies ear pain. Denies dysuria. Denies chest pain or shortness of breath. Reports wheezing. Denies history of COPD or asthma. Denies pain. Has not received a flu vaccination. Has taken NyQuil for symptom management. She goes to the [facility] for primary care. Allergies to phenobarbital. Has history of hypertension and has not taken her medications in 2 days secondary to not feeling well. History of seizures and does not take any medication; says she has a vagal stimulator in her chest. No known aggravating or relieving factors. Symptoms are moderate in severity. Has no other medical complaints. No other modifying factors or associated signs and symptoms. PFSH Past Medical History Blood Disorders: No Depression: Yes Cardiovascular Problems: Yes (HTN) Diminished Hearing: No Endocrine: Yes Gastrointestinal Disorders: Yes Genitourinary: No Headaches: Yes Hypertension: Yes Musculoskeletal: No Neurologic: Yes Psychiatric: Yes Reproductive: No Respiratory: Yes Seizures: Yes Sickle Cell Disease: No Thyroid Disease: Yes (HYPOTHYROIDISM) : 2 Para: 1 Miscarriage: 1 Past Surgical History Body Medical Devices: STIMULATOR YULY NERVE Cholecystectomy: Yes Gynecologic Surgery: Yes (LASER ON CERVIX) Hysterectomy: Yes Neurologic Surgery: Yes (VAGUS NERVE STIMULATOR L SIDE CHEST) Thoracic Surgery: Yes (VAGAL STIMULATER IN CHEST FOR SEIZURES) Other Surgery: Yes (VAGUS STIMULATOR INSTERTED >5YRS) Social History Alcohol Use: Yes (OCCASIONALLY) Tobacco Use: Yes (1/2 ppd) Substance Use: No (PT DENIES) Allergies-Medications (Allergen,Severity, Reaction): Coded Allergies: phenobarbital (Verified Allergy, Severe, "HIVES", 04/01/17) Reported Meds & Prescriptions Reported Meds & Active Scripts Active Nasonex Nasal [place] (Mometasone Furoate) 50 Mcg/Act Naspr 2 [place] EACH NARE DAILY PRN Tessalon Perles (Benzonatate) 100 Mg Cap 100 Mg PO TID PRN 3 Days Deltasone (Prednisone) 20 Mg Tab 20 Mg PO DAILY 4 Days start 04/02/2017 Ventolin Hfa 18 GM Inh (Albuterol Sulfate) 90 Mcg/Act Aer 2 Puff INH Q4-6H PRN Reported Lisinopril 20 Mg Tab 20 Mg PO BID Hydrochlorothiazide 25 Mg Tab 25 Mg PO DAILY Review of Systems Except as stated in HPI: all other systems reviewed are Neg Physical Exam Narrative GENERAL: Well-nourished, well-developed female patient, in no acute distress; afebrile, nontoxic-appearing SKIN: Warm and dry. No rash. HEAD: Atraumatic. Normocephalic. EYES: Pupils equal and round. No scleral icterus. No injection or drainage. ENT: Mucosa pink and moist. No erythema or exudates. No uvular edema. No uvular , palatal, or tonsillar deviation. Airway patent. EARS: Bilateral pinnae and external canals appear within normal limits. Bilateral tympanic membranes without erythema, dullness or perforation. NECK: Trachea midline. No lymphadenopathy. CARDIOVASCULAR: Slightly tachycardic in the 100s rate and rhythm. No murmur appreciated. RESPIRATORY: No accessory muscle use. Clear to auscultation with decreased lung sounds to bilateral bases. Breath sounds equal bilaterally. No retractions or tachypnea. GASTROINTESTINAL: Obese. Abdomen soft, non-tender, nondistended. Hepatic and splenic margins not palpable. Bowel sounds are active 4 quadrants. MUSCULOSKELETAL: No obvious deformities. No clubbing. No cyanosis. No edema. NEUROLOGICAL: Awake and alert. Oriented 3. No obvious cranial nerve deficits. Motor grossly within normal limits. Normal speech. Moves all extremities. 5/5 strength to all extremities. PSYCHIATRIC: Appropriate mood and affect; insight and judgment normal. Data Data Last Documented VS Vital Signs Date Time Temp Pulse Resp B/P (MAP) Pulse Ox O2 Delivery O2 Flow Rate FiO2 04/01/17 12:49 04/01/17 12:00 98 17 96 Room Air 04/01/17 11:08 98.1 Orders Orders Basic Metabolic Panel (Bmp) (04/01/17 11:33) Complete Blood Count With Diff (04/01/17 11:33) Urinalysis - C+S If Indicated (04/01/17 11:33) Iv Access Insert/Monitor (04/01/17 11:33) Sodium Chlor 0.9% 1000 Ml Inj (Ns 1000 M (04/01/17 11:33) Sodium Chloride 0.9% Flush (Ns Flush) (04/01/17 11:45) Chest, Single Ap (04/01/17 11:33) Prednisone (Deltasone) (04/01/17 11:45) Albuterol Neb (Albuterol Neb) (04/01/17 11:45) Influenzae A/B Antigen (04/01/17 11:33) Group A Rapid Strep Screen (04/01/17 11:33) Strep Culture (Group A) (04/01/17 11:33) Ed Discharge Order (04/01/17 12:42) Labs Laboratory Tests Test 04/01/17 11:30 04/01/17 11:35 Urine Color YELLOW Urine Turbidity HAZY Urine pH 5.5 Urine Specific [place] 1.022 Urine Protein TRACE mg/dL Urine Glucose (UA) NEG mg/dL Urine Ketones 10 mg/dL Urine Occult Blood SMALL Urine Nitrite NEG Urine Bilirubin NEG Urine Urobilinogen 2.0 MG/DL Urine Leukocyte Esterase LARGE Urine RBC 7 /hpf Urine WBC 2 /hpf Urine Squamous Epithelial Cells 10 /hpf Urine Bacteria RARE /hpf Urine Hyaline Casts 1 /lpf Urine Mucus FEW /lpf Microscopic Urinalysis Comment CULT NOT INDICATED White Blood Count 8.1 TH/MM3 Red Blood Count 5.07 MIL/MM3 Hemoglobin 15.2 GM/DL Hematocrit 45.4 % Mean Corpuscular Volume 89.6 FL Mean Corpuscular Hemoglobin 29.9 PG Mean Corpuscular Hemoglobin Concent 33.4 % Red Cell Distribution Width 14.8 % Platelet Count 221 TH/MM3 Mean Platelet Volume 9.1 FL Neutrophils (%) (Auto) 77.0 % Lymphocytes (%) (Auto) 12.8 % Monocytes (%) (Auto) 7.6 % Eosinophils (%) (Auto) 2.2 % Basophils (%) (Auto) 0.4 % Neutrophils # (Auto) 6.3 TH/MM3 Lymphocytes # (Auto) 1.0 TH/MM3 Monocytes # (Auto) 0.6 TH/MM3 Eosinophils # (Auto) 0.2 TH/MM3 Basophils # (Auto) 0.0 TH/MM3 CBC Comment DIFF FINAL Differential Comment Blood Urea Nitrogen 13 MG/DL Creatinine 1.29 MG/DL Random Glucose 167 MG/DL Calcium Level 9.0 MG/DL Sodium Level 133 MEQ/L Potassium Level 4.4 MEQ/L Chloride Level 103 MEQ/L Carbon Dioxide Level 20.4 MEQ/L Anion Gap 10 MEQ/L Estimat Glomerular Filtration Rate 45 ML/MIN [facility] Medical Decision Making Medical Screen Exam Complete: Yes Emergency Medical Condition: Yes Medical Record Reviewed: Yes Differential Diagnosis Pneumonia, bronchitis, influenza, gastroenteritis Narrative Course 41-year-old female with cough/flu symptoms. IV site obtained. CBC, BMP, urinalysis, chest x-ray, DuoNeb, Deltasone, influenza, rapid strep, normal saline bolus ordered. 1233: CBC unremarkable. Sodium 133, creatinine 1.29. Urinalysis without signs of infection. Chest x-ray with no acute findings. Influenza and rapid strep negative. Suspecting viral bronchitis. On reexamination the patient reports improvement in symptoms. Lungs are clear and equal throughout with improved breath sounds. She denies shortness of breath at this time. Albuterol inhaler and Deltasone prescribed for home. Information for [facility] for follow-up was provided. Instructed patient to follow up with primary care provider. Patient verbalizes understanding and agreement with treatment plan. Patient is medically cleared and stable for discharge. Discussed reasons to return to the emergency department. Patient agrees with treatment plan. The patients vital signs are stable and the patient is stable for outpatient follow-up and treatment. Patient discharged home, stable and in no acute distress. Diagnosis Primary Impression: Acute viral bronchitis Referrals: [facility] Primary Care Physician Patient Instructions: Acute Bronchitis (ED), General Instructions Departure Forms: Tests/Procedures, Work Release Enter return to work date: Apr 05, 2017 Additional Instructions: Use Albuterol inhaler as prescribed Take oral steroids as prescribed and complete full course Use Tessalon Perles as prescribed to decrease coughing spasms [id number] decongestants or antihistamines as directed and as needed for symptom management Your cough can last 4-6 weeks Drink plenty of fluids to prevent dehydration Use hot air humidifier to decrease cough exacerbation Turn off ceiling fans and sleep with head of bed elevated Avoid triggers such as second hand smoke, dust, known allergens Follow-up with your primary care provider Return to the emergency department immediately with worsening of symptoms Med/Other Pt SpecificInfo: Prescription(s) given Scripts Mometasone Nasal [place] (Nasonex Nasal [place]) 50 Mcg/Act Naspr 2 SPRAY EACH NARE DAILY Y for NASAL CONGESTION, #1 BOTTLE 0 Refills Prov: Blanca Vivar 04/01/17 Benzonatate (Tessalon Perles) 100 Mg Cap 100 MG PO TID Y for COUGH for 3 Days, CAP 0 Refills Prov: Blanca VivarP 04/01/17 Prednisone (Deltasone) 20 Mg Tab 20 MG PO DAILY for 4 Days, #4 TAB 0 Refills start 04/02/2017 Prov: Blanca VivarP 04/01/17 Albuterol 18 GM Inh (Ventolin Hfa 18 GM Inh) 90 Mcg/Act Aer 2 PUFF INH Q4-6H Y for SOB/WHEEZING, #1 INHALER 0 Refills Prov: Blanca Vivar 04/01/17 Disposition: 01 DISCHARGE HOME Condition: Stable Blanca Vivar Apr 01, 2017 11:33
[2017-04-01] MEDS ORDERED: RESP: ALBUTEROL 2.5 MG/3 ML NEB (SCH) INH ONE ×2 (11:45)
[2017-04-01] MEDS ORDERED: SODIUM CHLORIDE 0.9% FLUSH 10 ML FLUSH IV FLUSH PRN ×2 (11:45)
[2017-04-01] MEDS ORDERED: predniSONE 20 MG TAB PO ONE ×2 (11:45)
[2017-04-01 11:55] LABS: AUTOMATED NEUTROPHIL # 6.3 TH/MM3 (1.8-7.7); BASOPHIL % 0.4 % (0.0-2.0); EOSINOPHIL # 0.2 TH/MM3 (0-0.4); EOSINOPHIL % 2.2 % (0.0-4.0); HEMATOCRIT 45.4 % (35.0-46.0); HEMOGLOBIN 15.2 GM/DL (11.6-15.3); LYMPH % 12.8 % (9.0-44.0); MEAN CELL VOLUME 89.6 FL (80.0-100.0); MEAN CORPUSCULAR HEMOGLOBIN 29.9 PG (27.0-34.0); MEAN CORPUSCULAR HGB CONC 33.4 % (32.0-36.0); MEAN PLATELET VOLUME 9.1 FL (7.0-11.0); MONO % 7.6 % (0.0-8.0); MONOCYTE # 0.6 TH/MM3 (0-0.9); PLATELET COUNT 221 TH/MM3 (150-450); RED BLOOD COUNT 5.07 MIL/MM3 (4.00-5.30); RED CELL DISTRIBUTION WIDTH 14.8 % (11.6-17.2); WHITE BLOOD COUNT 8.1 TH/MM3 (4.0-11.0)
[2017-04-01 12:00] VITALS: BP 154/84; PULSE 98; RESP 17; O2SAT 96
[2017-04-01 12:05] LABS: BACTERIA, URINE RARE /hpf; BILIRUBIN, URINE NEG (NEG); BLOOD, URINE SMALL (NEG); GLUCOSE,URINE NEG (NEG); HYALINE CAST, URINE 1 /lpf (RARE); KETONE, URINE 10 mg/dL (NEG); MUCUS URINE FEW /lpf (OCC); NITRITE,URINE NEG (NEG); PH, URINE 5.5 (5.0-8.5); SQUAMOUS EPITHELIAL CELL URINE 10 /hpf (0-5); URINE COLOR YELLOW (YELLW/STRAW); URINE LEUKOCYTE ESTERASE LARGE (NEG)
[2017-04-01 12:12] LABS: BICARBONATE 20.4 MEQ/L (21.0-32.0); CREATININE 1.29 MG/DL (0.50-1.00)
--- NOTE | 2017-04-01 12:14 | RADRPT ---
EXAM DATE/TIME: 04/01/2017 11:57 [facility] COMPARISON: CHEST SINGLE AP, December 14, 2016, 19:15. INDICATIONS : Shortness of breath. MEDICAL HISTORY : Hypertension. Seizures SURGICAL HISTORY : Hysterectomy. Cholecystectomy. Vagus nerve stimulator. ENCOUNTER: Initial ACUITY: 4 - 6 days PAIN SCORE: 0/10 LOCATION: Bilateral cranial FINDINGS: A single view of the chest demonstrates the lungs to be symmetrically aerated without evidence of mas s, infiltrate or effusion. The cardiomediastinal contours are unremarkable. Osseous structures are intact. There are atherosclerotic calcifications in the aorta. There are lung electrocardiogram leads . CONCLUSION: No acute disease. Steve Guzman MD on April 01, 2017 at 12:11 Board Certified Radiologist. This report was verified electronically.
[2017-04-01] MEDS ORDERED: BENZ100 PO ×2 (12:40)
[2017-04-01] MEDS ORDERED: PRED-503 PO ×2 (12:40)
[2017-04-01] MEDS ORDERED: VENTAER INH ×2 (12:40)
[2017-04-01] MEDS ORDERED: MOME17I EACH NARE ×2 (12:40)
== END 2017-04-01 12:59 | disposition home or self-care (01) ==
LOC: NEPD 11:07
DX: J20.8 Acute bronchitis due to other specified organisms (principal); I10 Essential (primary) hypertension; F17.200 Nicotine dependence, unspecified, uncomplicated
CPT/HCPCS: 71010; 80048; 81001; 85025; 87081; 87804; 87880; 94664; 96360; 99284; J7030; J7512; J7613

== ENCOUNTER 2017-06-06 22:34 | Emergency (ER) | payer SELFPAY ==
[~2017-06-06] VITALS: Ht 167.6 cm; Wt 110.0 kg
[~2017-06-06 22:34] MED LIST changes: +BENZ100 PO; -CIPR-9 PO; +MOME17I EACH NARE; +PRED-503 PO; -PROV10TA PO; +VENTAER INH
[2017-06-06 22:37] VITALS: BP 158/71; PULSE 101; RESP 16; TEMP 99.2; O2SAT 96
[2017-06-06] MEDS ORDERED: PHENERGAN W CODEIN PO (23:12)
--- NOTE | 2017-06-06 23:12 | PD ---
HPI Chief Complaint: GI Complaint Time Seen by Provider: 22:56 Travel History International Travel<30 days: No Contact w/Intl Traveler<30days: No Traveled to known affect area: No History of Present Illness HPI 41-year-old female complains of coughing, body ache, nausea vomiting diarrhea. Patient states the symptoms started 2 days ago. Patient states that cough intermittent dry cough. Patient denies any chest pain or shortness of breath. Patient denies abdominal pain. Patient states that she had nausea vomiting 2 days ago but not yesterday or today. Patient states that she has loose stool as evening. Patient denies any dysuria or frequency. Patient denies any vaginal discharge or bleeding. Patient denies any fever chills. Patient denies any back pain. Patient was seen at local clinic and given prescription for Z-Que. Patient has been taking the Z-Que as directed. PFSH Past Medical History Blood Disorders: No Depression: Yes Cardiovascular Problems: Yes (HTN) Diminished Hearing: No Endocrine: Yes Gastrointestinal Disorders: Yes Genitourinary: No Headaches: Yes Hypertension: Yes Musculoskeletal: No Neurologic: Yes Psychiatric: Yes Reproductive: No Respiratory: Yes Seizures: Yes Sickle Cell Disease: No Thyroid Disease: Yes (HYPOTHYROIDISM) Tetanus Vaccination: Unknown Influenza Vaccination: No ?: Not LMP: 06/06/2017 : 2 Para: 1 Miscarriage: 1 Past Surgical History Body Medical Devices: STIMULATOR YULY NERVE Cholecystectomy: Yes Gynecologic Surgery: Yes (LASER ON CERVIX) Hysterectomy: Yes Neurologic Surgery: Yes (VAGUS NERVE STIMULATOR L SIDE CHEST) Thoracic Surgery: Yes (VAGAL STIMULATER IN CHEST FOR SEIZURES) Other Surgery: Yes (VAGUS STIMULATOR INSTERTED >5YRS) Social History Alcohol Use: Yes (OCCASIONALLY) Tobacco Use: Yes (1/2 ppd) Substance Use: No (PT DENIES) Allergies-Medications (Allergen,Severity, Reaction): Coded Allergies: phenobarbital (Verified Allergy, Severe, "HIVES", 06/06/17) Reported Meds & Prescriptions Reported Meds & Active Scripts Active Nasonex Nasal [place] (Mometasone Furoate) 50 Mcg/Act Naspr 2 [place] EACH NARE DAILY PRN Tessalon Perles (Benzonatate) 100 Mg Cap 100 Mg PO TID PRN 3 Days Deltasone (Prednisone) 20 Mg Tab 20 Mg PO DAILY 4 Days start 04/02/2017 Ventolin Hfa 18 GM Inh (Albuterol Sulfate) 90 Mcg/Act Aer 2 Puff INH Q4-6H PRN Reported Lisinopril 20 Mg Tab 20 Mg PO BID Hydrochlorothiazide 25 Mg Tab 25 Mg PO DAILY Review of Systems General / Constitutional: No: Fever Eyes: No: Visual changes HENT: No: Headaches Cardiovascular: No: Chest Pain or Discomfort Respiratory: Positive: Cough, No: Shortness of Breath Gastrointestinal: Positive: Nausea, Vomiting, Diarrhea, No: Abdominal Pain Genitourinary: No: Dysuria Musculoskeletal: No: Pain Skin: No Rash Neurologic: No: Weakness Psychiatric: No: Depression Endocrine: No: Polydipsia Hematologic/Lymphatic: No: Easy Bruising Physical Exam Narrative GENERAL: Well-nourished, well-developed patient. SKIN: Focused skin assessment warm/dry. HEAD: Normocephalic. EYES: No scleral icterus. No injection or drainage. NECK: Supple, trachea midline. No JVD or lymphadenopathy. CARDIOVASCULAR: Regular rate and rhythm without murmurs, gallops, or rubs. RESPIRATORY: Breath sounds equal bilaterally. No accessory muscle use. GASTROINTESTINAL: Abdomen soft, non-tender, nondistended. MUSCULOSKELETAL: No cyanosis, or edema. BACK: Nontender without obvious deformity. No CVA tenderness. Neurologic exam normal. Data Data Last Documented VS Vital Signs Date Time Temp Pulse Resp B/P (MAP) Pulse Ox O2 Delivery O2 Flow Rate FiO2 06/06/17 22:37 99.2 101 16 158/71 (100) 96 Room Air MDM Medical Decision Making Medical Screen Exam Complete: Yes Emergency Medical Condition: Yes Differential Diagnosis Differential diagnosis including viral syndrome, bronchitis, pneumonia, gastroenteritis. Narrative Course 41-year-old female with cough, nausea vomiting, diarrhea, body ache. Diagnosis Primary Impression: Influenza Additional Impression: Viral syndrome Patient Instructions: General Instructions Additional Instructions: Phenergan With Codeine as needed for coughing. Tylenol or ibuprofen for aching pain. Follow-up with personal physician. Return if worse. Med/Other Pt SpecificInfo: Prescription(s) given Scripts [Phenergan W Codein] No Conflict Check 10 ML PO Q6HR for Cough, #120 Prov: Kasi Reese MD 06/06/17 Disposition: 01 DISCHARGE HOME Condition: Stable Kasi Reese MD Jun 06, 2017 23:12
== END 2017-06-06 23:15 | disposition home or self-care (01) ==
LOC: NEPE 22:34
DX: J11.1 Influenza due to unidentified influenza virus with other respiratory manifestations (principal); R11.2 Nausea with vomiting, unspecified; R19.7 Diarrhea, unspecified; F32.9 Major depressive disorder, single episode, unspecified; I10 Essential (primary) hypertension; R56.9 Unspecified convulsions; E03.9 Hypothyroidism, unspecified; F17.200 Nicotine dependence, unspecified, uncomplicated; Z79.899 Other long term (current) drug therapy
CPT/HCPCS: 99283

== ENCOUNTER 2017-06-11 09:11 | Emergency (ER) | payer SELFPAY ==
[~2017-06-11] VITALS: Ht 167.6 cm; Wt 100.0 kg
[~2017-06-11 09:11] MED LIST changes: +PHENERGAN W CODEIN PO
[2017-06-11 09:15] VITALS: BP 141/91; PULSE 106; RESP 20; TEMP 97.9; O2SAT 94
[2017-06-11] MEDS ORDERED: SYNT25TA PO (09:28)
--- NOTE | 2017-06-11 09:39 | PD ---
HPI Chief Complaint: Cold / Flu Symptoms Time Seen by Provider: 09:31 Travel History International Travel<30 days: No Contact w/Intl Traveler<30days: No Traveled to known affect area: No History of Present Illness HPI 41-year-old female came to the emergency room with history of cough and generalized weakness. Patient says she started having flulike symptoms 2 weeks ago and had seen her primary care. He was put on a Z-Que which she finished but didn't feel better. She came to the emergency room on the when she was told that it was flu but it test was not done. However since his symptoms were ongoing for so long symptomatic treatment was suggested. Patient says now she has started to cough and doesn't feel any better. She was slightly tachycardic upon arrival. She says she will has been taking TheraFlu and some other gqiw-hln-nmbhptc medication but did not take anything in the past 4-5 days since nothing is working. Patient is a smoker and has been smoking for past 20 some years. Patient was afebrile here. [facility] Past Medical History Narrative Medical List of her past medical, surgical, social and family history is reviewed from the nursing note. Blood Disorders: No Depression: Yes Cardiovascular Problems: Yes (HTN) Diminished Hearing: No Endocrine: Yes Gastrointestinal Disorders: Yes Genitourinary: No Headaches: Yes Hypertension: Yes Musculoskeletal: No Neurologic: Yes Psychiatric: Yes Reproductive: No Respiratory: Yes Seizures: Yes Sickle Cell Disease: No Thyroid Disease: Yes (HYPOTHYROIDISM) ?: Not LMP: 06/07/17 : 2 Para: 1 Miscarriage: 1 Past Surgical History Body Medical Devices: STIMULATOR YULY NERVE Cholecystectomy: Yes Gynecologic Surgery: Yes (LASER ON CERVIX) Hysterectomy: Yes Neurologic Surgery: Yes (VAGUS NERVE STIMULATOR L SIDE CHEST) Thoracic Surgery: Yes (VAGAL STIMULATER IN CHEST FOR SEIZURES) Other Surgery: Yes (VAGUS STIMULATOR INSTERTED >5YRS) Social History Alcohol Use: Yes (OCCASIONALLY) Tobacco Use: Yes (1/2 ppd) Substance Use: No (PT DENIES) Allergies-Medications (Allergen,Severity, Reaction): Coded Allergies: phenobarbital (Verified Allergy, Severe, "HIVES", 06/11/17) Comments List of her allergies reviewed from the nursing note. Reported Meds & Prescriptions Reported Meds & Active Scripts Active Prednisone 20 Mg Tab 20 Mg PO BID 5 Days Ventolin Hfa 18 GM Inh (Albuterol Sulfate) 90 Mcg/Act Aer 2 Puff INH Q4-6H PRN Reported Synthroid (Levothyroxine Sodium) 25 Mcg Tab 25 Mcg PO DAILY Lisinopril 20 Mg Tab 20 Mg PO BID Hydrochlorothiazide 25 Mg Tab 25 Mg PO DAILY Narrative Medication List of her home medications reviewed from the nursing note. Review of Systems Except as stated in HPI: all other systems reviewed are Neg Respiratory: Positive: Cough Physical Exam Narrative GENERAL: Awake, alert, obese, moderate distress SKIN: Focused skin assessment warm/dry. HEAD: Atraumatic. Normocephalic. EYES: Pupils equal and round. No scleral icterus. No injection or drainage. ENT: No nasal bleeding or discharge. Mucous membranes pink and moist. NECK: Trachea midline. No JVD. CARDIOVASCULAR: Regular rate and rhythm. No murmur appreciated. RESPIRATORY: Decreased air entry bilaterally, end expiratory wheeze GASTROINTESTINAL: Abdomen soft, non-tender, nondistended. Hepatic and splenic margins not palpable. MUSCULOSKELETAL: No obvious deformities. No clubbing. No cyanosis. No edema. NEUROLOGICAL: Awake and alert. No obvious cranial nerve deficits. Motor grossly within normal limits. Normal speech. PSYCHIATRIC: Appropriate mood and affect; insight and judgment normal. Data Data Last Documented VS Vital Signs Date Time Temp Pulse Resp B/P (MAP) Pulse Ox O2 Delivery O2 Flow Rate FiO2 06/11/17 14:17 90 15 94 06/11/17 12:06 Room Air 06/11/17 09:15 97.9 Orders Orders Iv Access Insert/Monitor (06/11/17 09:31) Ecg Monitoring (06/11/17 09:31) Oximetry (06/11/17 09:31) Oxygen Administration (06/11/17 09:31) Chest, Pa & Lat (06/11/17 09:31) Sodium Chloride 0.9% Flush (Ns Flush) (06/11/17 09:45) Albuterol-Ipratropium Neb (Duoneb Neb) (06/11/17 09:45) Prednisone (Deltasone) (06/11/17 09:45) Complete Blood Count With Diff (06/11/17 09:31) Basic Metabolic Panel (Bmp) (06/11/17 09:31) Electrocardiogram (06/11/17 ) B-Type Natriuretic Peptide (06/11/17 09:31) Ed Discharge Order (06/11/17 13:56) Labs Laboratory Tests Test 06/11/17 10:15 06/11/17 12:57 White Blood Count 7.4 TH/MM3 Red Blood Count 5.08 MIL/MM3 Hemoglobin 14.9 GM/DL Hematocrit 43.5 % Mean Corpuscular Volume 85.6 FL Mean Corpuscular Hemoglobin 29.3 PG Mean Corpuscular Hemoglobin Concent 34.2 % Red Cell Distribution Width 16.6 % Platelet Count 197 TH/MM3 Mean Platelet Volume 9.2 FL Neutrophils (%) (Auto) 62.2 % Lymphocytes (%) (Auto) 27.2 % Monocytes (%) (Auto) 9.4 % Eosinophils (%) (Auto) 0.2 % Basophils (%) (Auto) 1.0 % Neutrophils # (Auto) 4.6 TH/MM3 Lymphocytes # (Auto) 2.0 TH/MM3 Monocytes # (Auto) 0.7 TH/MM3 Eosinophils # (Auto) 0.0 TH/MM3 Basophils # (Auto) 0.1 TH/MM3 CBC Comment AUTO DIFF Differential Comment AUTO DIFF CONFIRMED Platelet Estimate NORMAL Platelet Morphology Comment ENLARGED Thor Cells 1+ B-Type Natriuretic Peptide 27 PG/ML Blood Urea Nitrogen 23 MG/DL Creatinine 1.27 MG/DL Random Glucose 113 MG/DL Calcium Level 9.1 MG/DL Sodium Level 138 MEQ/L Potassium Level 3.7 MEQ/L Chloride Level 100 MEQ/L Carbon Dioxide Level 29.9 MEQ/L Anion Gap 8 MEQ/L Estimat Glomerular Filtration Rate 46 ML/MIN MDM Medical Decision Making Medical Screen Exam Complete: Yes Emergency Medical Condition: Yes Medical Record Reviewed: Yes Interpretation(s) Twelve-lead EKG was reviewed by me. Normal sinus rhythm, left axis deviation, lateral T wave inversions. Heart rate of 86 bpm. Differential Diagnosis COPD exacerbation, bronchitis, pneumonia Narrative Course CBC, BNP and chest x-ray are negative. Awaiting for the BMP which was a redraw. Patient was given 3 duo nebs and by mouth prednisone. If the chemistry is negative she'll be discharged home on inhaler, prednisone and smoking cessation. 12:43 PM patient's BMP was twice declared by lab hemolyzed and when a third draw was done patient refused. Without the chemistry cannot make a decision for discharge. However patient will leave AMA and go home on the prescriptions given to her unfortunately. She is in full capacity to make decisions for herself. Procedures EKG Prior to Arrival: No Diagnosis Primary Impression: Acute exacerbation of COPD with asthma Additional Impression: Needs smoking cessation education Additional Instructions: You must top smoking in order to get better. Take the inhaler 2 puffs every 4- 6 hours still symptoms get better. Take the medication as per the prescription direction. Return to the ER if condition worsens or any other new concerns. Otherwise follow-up with your primary care. Med/Other Pt SpecificInfo: Prescription(s) given Scripts Prednisone (Prednisone) 20 Mg Tab 20 MG PO BID for 5 Days, #10 TAB 0 Refills Prov: Yoly Beck MD 06/11/17 Albuterol 18 GM Inh (Ventolin Hfa 18 GM Inh) 90 Mcg/Act Aer 2 PUFF INH Q4-6H Y for SHORTNESS OF BREATH, #1 INHALER 0 Refills Prov: Yoly Beck MD 06/11/17 Disposition: 01 DISCHARGE HOME Condition: Stable Yoly Beck MD Jun 11, 2017 09:39
[2017-06-11] MEDS ORDERED: predniSONE 20 MG TAB PO ONE (09:45)
[2017-06-11] MEDS ORDERED: SODIUM CHLORIDE 0.9% FLUSH 10 ML FLUSH IVF PRN (09:45)
[2017-06-11] MEDS: RESP: ALBUTEROL 2.5 MG/IPRATROPIUM 0.5 MG NEB (SCH) INH ×2 (09:48→09:49)
--- NOTE | 2017-06-11 10:37 | RADRPT ---
EXAM DATE/TIME: 06/11/2017 09:57 [facility] COMPARISON: CHEST PA & LAT, June 20, 2014, 8:02. INDICATIONS : Coughing, Flu symptoms five days ago. Short of breath. MEDICAL HISTORY : Hypertension. Seizures. SURGICAL HISTORY : Stimulator. ENCOUNTER: Initial ACUITY: 4 - 6 days PAIN SCORE: 0/10 LOCATION: Bilateral chest FINDINGS: The cardiac silhouette is normal in transverse diameter. The lungs are free of acute parenchymal opac ity. No effusions are identified. Vagal nerve stimulator is present. CONCLUSION: 1. No acute cardiopulmonary disease. Krish Quiroz MD on June 11, 2017 at 10:30 Board Certified Radiologist. This report was verified electronically.
[2017-06-11 10:50] LABS: AUTOMATED NEUTROPHIL # 4.6 TH/MM3 (1.8-7.7); BASOPHIL # 0.1 TH/MM3 (0-0.2); EOSINOPHIL % 0.2 % (0.0-4.0); HEMATOCRIT 43.5 % (35.0-46.0); HEMOGLOBIN 14.9 GM/DL (11.6-15.3); LYMPH % 27.2 % (9.0-44.0); MEAN CELL VOLUME 85.6 FL (80.0-100.0); MEAN CORPUSCULAR HEMOGLOBIN 29.3 PG (27.0-34.0); MEAN CORPUSCULAR HGB CONC 34.2 % (32.0-36.0); MEAN PLATELET VOLUME 9.2 FL (7.0-11.0); MONO % 9.4 % (0.0-8.0); MONOCYTE # 0.7 TH/MM3 (0-0.9); NEUT % 62.2 % (16.0-70.0); PLATELET COUNT 197 TH/MM3 (150-450); RED BLOOD COUNT 5.08 MIL/MM3 (4.00-5.30); RED CELL DISTRIBUTION WIDTH 16.6 % (11.6-17.2); WHITE BLOOD COUNT 7.4 TH/MM3 (4.0-11.0)
[2017-06-11 11:18] LABS: BURR CELLS 1+ (NORMAL)
[2017-06-11 12:03] VITALS: BP 150/94; PULSE 88; RESP 15; O2SAT 97
[2017-06-11] MEDS ORDERED: PRED20 PO (12:03)
[2017-06-11] MEDS ORDERED: VENTAER INH (12:03)
[2017-06-11 12:06] VITALS: BP 150/94; PULSE 88; RESP 15; O2SAT 97
[2017-06-11 14:10] LABS: BICARBONATE 29.9 MEQ/L (21.0-32.0); CALCIUM 9.1 MG/DL (8.5-10.1); CREATININE 1.27 MG/DL (0.50-1.00)
--- NOTE | 2017-06-11 21:21 | EKG ---
Date Performed: 06/11/2017 Time Performed: 09:47:26 PTAGE: 41 years EKG: Sinus rhythm MODERATE T-WAVE ABNORMALITY, CONSIDER LATERAL ISCHEMIA ABNORMAL ECG PREVIOUS TRACING : 11/16/2015 10.39 Compared to prior tracing no significant change DOCTOR: Sulaiman Kam Interpretating Date/Time 06/11/2017 21:21:29
== END 2017-06-11 14:26 | disposition home or self-care (01) ==
LOC: NEPD 09:11
DX: J44.1 Chronic obstructive pulmonary disease with (acute) exacerbation (principal); J45.901 Unspecified asthma with (acute) exacerbation; F17.210 Nicotine dependence, cigarettes, uncomplicated; E03.9 Hypothyroidism, unspecified; I10 Essential (primary) hypertension; R06.02 Shortness of breath
CPT/HCPCS: 71046; 80048; 83880; 85025; 93005; 94644; 99285; J7512

== ENCOUNTER 2017-07-26 07:23 | Emergency (ER) | payer SELFPAY ==
[~2017-07-26] VITALS: Ht 167.6 cm; Wt 100.0 kg
[~2017-07-26 07:23] MED LIST changes: -BENZ100 PO; -MOME17I EACH NARE; -PHENERGAN W CODEIN PO; -PRED-503 PO; +PRED20 PO; +SYNT25TA PO
[2017-07-26 07:26] VITALS: BP 180/94; PULSE 117; RESP 14; TEMP 98.1; O2SAT 98
--- NOTE | 2017-07-26 08:06 | PD ---
HPI Chief Complaint: Injury Time Seen by Provider: 07:54 Travel History International Travel<30 days: No Contact w/Intl Traveler<30days: No Traveled to known affect area: No History of Present Illness HPI 42-year-old female presents emergent department with injury to the left lower leg. Patient states she was at her mother's house and came out of the bathroom slipped on a rug and fell down onto her left ankle and lower leg. Patient now has pain in the left ankle and left lateral lower leg just below the knee. She has tingling into the left fourth and fifth toes. Patient denies any other symptoms. She did not hit her head or lose consciousness. Pain is 8 out of 10 and unable to ambulate. She is allergic to phenobarbital. PFSH Past Medical History Blood Disorders: No Depression: Yes Cancer: No Cardiovascular Problems: Yes (HTN) Diminished Hearing: No Endocrine: Yes Gastrointestinal Disorders: Yes Genitourinary: No Headaches: Yes Hypertension: Yes Musculoskeletal: No Neurologic: Yes Psychiatric: Yes Reproductive: No Respiratory: Yes Seizures: Yes Sickle Cell Disease: No Thyroid Disease: Yes (HYPOTHYROIDISM) Tetanus Vaccination: > 5 Years ?: Not LMP: 2 MONTHS AGO : 2 Para: 1 Miscarriage: 1 Past Surgical History Body Medical Devices: STIMULATOR YULY NERVE Cholecystectomy: Yes Gynecologic Surgery: Yes (LASER ON CERVIX) Hysterectomy: Yes Neurologic Surgery: Yes (VAGUS NERVE STIMULATOR L SIDE CHEST) Thoracic Surgery: Yes (VAGAL STIMULATER IN CHEST FOR SEIZURES) Other Surgery: Yes (VAGUS STIMULATOR INSTERTED >5YRS) Social History Alcohol Use: Yes (OCCASIONALLY) Tobacco Use: Yes (1/2 ppd) Substance Use: No (PT DENIES) Allergies-Medications (Allergen,Severity, Reaction): Coded Allergies: phenobarbital (Verified Allergy, Severe, "HIVES", 06/11/17) Reported Meds & Prescriptions Reported Meds & Active Scripts Active Reported Lisinopril 20 Mg Tab 20 Mg PO BID Hydrochlorothiazide 25 Mg Tab 25 Mg PO DAILY Review of Systems Except as stated in HPI: all other systems reviewed are Neg General / Constitutional: No: Fever Eyes: No: Visual changes HENT: No: Headaches Cardiovascular: No: Chest Pain or Discomfort Respiratory: No: Shortness of Breath Gastrointestinal: No: Abdominal Pain Genitourinary: No: Dysuria Musculoskeletal: Positive: Arthralgias, Limited ROM, Pain Skin: No Rash Neurologic: No: Weakness Psychiatric: No: Depression Endocrine: No: Polydipsia Hematologic/Lymphatic: No: Easy Bruising Physical Exam Narrative GENERAL: Patient appears in mild distress. SKIN: Warm and dry. Normal color. Normal turgor. HEAD: Atraumatic. Normocephalic. EYES: Pupils equal and round. No scleral icterus. No injection or drainage. ENT: No nasal bleeding or discharge. Mucous membranes pink and moist. NECK: Trachea midline. Supple and nontender. CARDIOVASCULAR: Regular rate and rhythm. RESPIRATORY: No accessory muscle use. Clear to auscultation. Breath sounds equal bilaterally. MUSCULOSKELETAL: Extremities without clubbing, cyanosis, or edema. No obvious deformities. Patient is tenderness at the left lateral malleolus, and at the proximal end of the left fibula. There is no obvious deformity or crepitus noted. Pain is substantial and exam is limited due to that. Neurovascular exam is normal distally. NEUROLOGICAL: Awake and alert. No obvious cranial nerve deficits. Motor grossly within normal limits. Five out of 5 muscle strength in the arms and legs. Normal speech. PSYCHIATRIC: Appropriate mood and affect; insight and judgment normal. Data Data Last Documented VS Vital Signs Date Time Temp Pulse Resp B/P (MAP) Pulse Ox O2 Delivery O2 Flow Rate FiO2 07/26/17 07:26 98.1 117 14 180/94 (122) 98 Orders Orders Ankle, Complete ([id number]) (07/26/17 07:55) Ice/Cold Pack (07/26/17 07:55) Tibia/Fibula (Ap/Lat) (07/26/17 07:57) Splint Or Brace Apply/Monitor (07/26/17 08:28) Crutches (07/26/17 08:28) MDM Medical Decision Making Medical Screen Exam Complete: Yes Emergency Medical Condition: Yes Differential Diagnosis Slip and fall. Left ankle sprain. Left ankle contusion. Left fibular fracture. Narrative Course Patient is medically stable at time of exam. Ice pack is ordered for the injured area. X-rays of the left ankle and tib-fib are ordered. X-rays of the ankle and tibia fibula are both negative per radiologist. Patient is placed in an Peter wrap and ankle stirrup splint as well as crutches. Patient can ambulate as tolerated. Patient is given ibuprofen 600 mg 3 times a day #30. Patient can take Tylenol as well. Recommend frequent ice to the area. Work note is given, Patient is to follow with her primary care physician as needed. Diagnosis Primary Impression: Moderate left ankle sprain Qualified Codes: S93.402A - Sprain of unspecified ligament of left ankle, initial encounter Additional Impression: Contusion of left ankle, initial encounter Referrals: Primary Care Physician Patient Instructions: Ankle Sprain (ED), Ankle Sprain Exercises (GEN), General Instructions Additional Instructions: X-rays of the ankle and tibia fibula are both negative per radiologist. Patient is placed in an Peter wrap and ankle stirrup splint as well as crutches. Patient can ambulate as tolerated. Patient is given ibuprofen 600 mg 3 times a day #30. Patient can take Tylenol as well. Recommend frequent ice to the area. Work note is given, Patient is to follow with her primary care physician as needed. Med/Other Pt SpecificInfo: Prescription(s) given Scripts Ibuprofen (Ibuprofen) 600 Mg Tab 600 MG PO Q8H Y for PAIN for 10 Days, #30 TAB 0 Refills Prov: Nimesh Grullon MD 07/26/17 Disposition: 01 DISCHARGE HOME Condition: Stable Kevin Ramírez Jul 26, 2017 08:06
--- NOTE | 2017-07-26 08:21 | RADRPT ---
EXAM DATE/TIME: 07/26/2017 08:02 [facility] COMPARISON: CHEST PA & LAT, June 11, 2017, 9:57. INDICATIONS : Left ankle pain after fall last night. MEDICAL HISTORY : Hypertension. Seizures. SURGICAL HISTORY : Stimulator. ENCOUNTER: Initial ACUITY: 1 day PAIN SCORE: 10/10 LOCATION: Left lateral ankle. FINDINGS: The examination demonstrates soft tissue swelling about the lateral malleolus. No definite fracture s een. The ankle mortise is intact. CONCLUSION: 1. Fairly diffuse soft tissue swelling. No acute bony abnormality identified. Jose Raul Carroll MD on July 26, 2017 at 8:18 Board Certified Radiologist. This report was verified electronically.
--- NOTE | 2017-07-26 08:22 | RADRPT ---
EXAM DATE/TIME: 07/26/2017 08:06 [facility] COMPARISON: ANKLE LEFT COMPLETE ([id number]), July 26, 2017, 8:02. INDICATIONS : Left lower leg pain after fall last night. MEDICAL HISTORY : Hypertension. Seizures. SURGICAL HISTORY : Stimulator. ENCOUNTER: Initial ACUITY: 1 day PAIN SCORE: 10/10 LOCATION: Left distal lower leg. FINDINGS: Two view examination of the left tibia demonstrates no evidence of fracture or dislocation. Bony min eralization is normal. The soft tissue structures are intact. CONCLUSION: Unremarkable examination of the left tibia. Jose Raul Carroll MD on July 26, 2017 at 8:20 Board Certified Radiologist. This report was verified electronically.
[2017-07-26] MEDS ORDERED: IBUP-232 PO (08:34)
== END 2017-07-26 08:58 | disposition home or self-care (01) ==
LOC: NEPD 07:23
DX: S93.402A Sprain of unspecified ligament of left ankle, initial encounter (principal); S90.02XA Contusion of left ankle, initial encounter; I10 Essential (primary) hypertension; E03.9 Hypothyroidism, unspecified; F32.9 Major depressive disorder, single episode, unspecified; F17.210 Nicotine dependence, cigarettes, uncomplicated
CPT/HCPCS: 73590; 73610; 99283; E0113; L1906